=== PATIENT | female | born 1940 | race Caucasian/White ===

== ENCOUNTER 2017-03-12 04:25 | Emergency (ER) | payer MEDICAID, MEDICARE, OTHER ==
[~2017-03-12] VITALS: Ht 165.1 cm; Wt 99.0 kg
[2017-03-12] MEDS ORDERED: PLEASE ENTER ALLERGIES MC SCH (05:00)
[2017-03-12] MEDS ORDERED: LORazepam 1MG TABLET PO ONE (05:00)
[2017-03-12 05:15] LABS: BASOPHILS # (AUTO) 0.08 x10^3/uL (0-0.1); BASOPHILS % (AUTO) 1 % (0-1); EOSINOPHILS % (AUTO) 5 % (1-7); LYMPHOCYTES # (AUTO) 2.25 x10^3/uL (1-3.4); LYMPHOCYTES % (AUTO) 34 % (22-44); MD NO; MEAN CORPUSCULAR VOLUME 84.7 fL (80-100); MEAN PLATELET VOLUME 9.3 fL (7.4-10.4); MONOCYTES # (AUTO) 0.37 x10^3/uL (0.2-0.8); MONOCYTES % (AUTO) 6 % (2-9); NEUTROPHILS # (AUTO) 3.55 x10^3/uL (1.8-6.8); NEUTROPHILS % (AUTO) 54 % (42-75); PLATELET COUNT 278 x10^3/uL (130-400); RED BLOOD COUNT 4.29 x10^6/uL (3.82-5.3); RED CELL DISTRIBUTION WIDTH 14.1 % (9.6-15.2)
[2017-03-12 05:23] LABS: ALBUMIN 3.7 g/dL (3.4-5.0); ANION GAP 8 mmol/L (5-15); CALCIUM 8.9 mg/dL (8.5-10.1); CHLORIDE 105 mmol/L (98-107)
[2017-03-12 05:27] LABS: CREATINE KINASE, TOTAL 119 U/L (26-192); CREATININE 1.54 mg/dL (0.55-1.02)
[2017-03-12] MEDS ORDERED: LORazepam 1MG TABLET ONE (05:35)
[2017-03-12 05:55] VITALS: BP 108/57
[2017-03-12] MEDS ORDERED: LORazepam 0.5MG TABLET PO ONE (06:30)
== END 2017-03-12 06:28 | disposition home or self-care (01) ==
LOC: ED 05:26
DX: M79.661 Pain in right lower leg (principal); M79.662 Pain in left lower leg; G89.29 Other chronic pain; G25.81 Restless legs syndrome; J44.9 Chronic obstructive pulmonary disease, unspecified; E11.22 Type 2 diabetes mellitus with diabetic chronic kidney disease; N18.9 Chronic kidney disease, unspecified; E11.21 Type 2 diabetes mellitus with diabetic nephropathy; Z87.891 Personal history of nicotine dependence
CPT/HCPCS: 36415; 80048; 82040; 82550; 83735; 85025; 99284

== ENCOUNTER → 2017-04-04 | Outpatient (CLI) | payer MEDICARE | END | disposition home or self-care (01) | LOC: CFH 11:37 | PROVIDERS: ATTEND Internal Medicine Cardiovascular Disease | DX: Z01.818 Encounter for other preprocedural examination (principal); R06.02 Shortness of breath; R01.1 Cardiac murmur, unspecified | CPT/HCPCS: 78452; 93017; A9502 ==

== ENCOUNTER → 2017-04-05 | Outpatient (CLI) | payer MEDICARE ==
[~2017-04-05] MED LIST: REGADENOSON 0.4 MG/5 ML SYRINGE ONE
== END | disposition home or self-care (01) ==
LOC: CFH 07:59
PROVIDERS: ATTEND Internal Medicine Cardiovascular Disease
DX: Z01.810 Encounter for preprocedural cardiovascular examination (principal); R06.02 Shortness of breath; R01.1 Cardiac murmur, unspecified; I44.7 Left bundle-branch block, unspecified; Z87.891 Personal history of nicotine dependence; J44.9 Chronic obstructive pulmonary disease, unspecified; E11.9 Type 2 diabetes mellitus without complications; E78.5 Hyperlipidemia, unspecified; I51.7 Cardiomegaly
CPT/HCPCS: 93306; J2785

== ENCOUNTER → 2017-05-26 | Outpatient (CLI) | payer MEDICARE ==
[~2017-05-26] MED LIST changes: +ADVAIR INH; +ALBUTEROL INH; +AMOX1TAB64 PO; +ATOR40TA78 PO; +CALCIUM; +CEPH-368 PO; +CHOLESTEROL MED; +DULCOLAX PO; +DULO60CA7 PO; +FENO145T32 PO; +FLEXERIL PO; +GABAPENTIN PO; +HUMALOG SQ; +INSU100V8 SQ; +JANUVIA PO; +LEVOTHYROXINE PO; +LISI-170 PO; +LISI-420 PO; +NOVOLIN R SQ-INSULIN; +OMEPRAZOLE; +OXYC-306 PO; +OXYCODONE PO; +RANI300T PO; -REGADENOSON 0.4 MG/5 ML SYRINGE ONE; +REQUIP PO; +ROSU20TA PO; +TRAZODONE PO
== END | disposition home or self-care (01) ==
LOC: CFH 07:46
PROVIDERS: ATTEND Nurse Practitioner
DX: M43.22 Fusion of spine, cervical region (principal); J96.11 Chronic respiratory failure with hypoxia
CPT/HCPCS: 71250; 72040

== ENCOUNTER → 2017-07-18 | Outpatient (CLI) | payer MEDICARE ==
[~2017-07-18] MED LIST changes: +CEFD300C37 PO; +DULO30CA2 PO; +FLUT15.88 NAS; +FLUT1DIS3 INH; +INSU100I11 SQ; +METR500T PO; +MULT-516 PO; +OMEP20TA62 PO; +OMEP40CA6 PO; +ROPI2TAB4 PO; +ROPI3TAB2 PO; +UMEC1DIS INH
[2017-07-18 15:51] LABS: MICROSCOPIC AUTO
[2017-07-18 15:51] LABS: BASOPHILS # (AUTO) 0.05 x10^3/uL (0-0.1); BASOPHILS % (AUTO) 1 % (0-1); EOSINOPHILS # (AUTO) 0.09 x10^3/uL (0-0.4); EOSINOPHILS % (AUTO) 1 % (1-7); LYMPHOCYTES % (AUTO) 28 % (22-44); MD NO; MEAN CORPUSCULAR HEMOGLOBIN 28.3 pg (27.0-34.8); MEAN CORPUSCULAR HGB CONC 32.6 g/dL (32.4-35.8); MEAN CORPUSCULAR VOLUME 86.7 fL (80-100); MEAN PLATELET VOLUME 8.9 fL (7.4-10.4); MONOCYTES # (AUTO) 0.42 x10^3/uL (0.2-0.8); MONOCYTES % (AUTO) 6 % (2-9); NEUTROPHILS # (AUTO) 4.19 x10^3/uL (1.8-6.8); NEUTROPHILS % (AUTO) 64 % (42-75); PLATELET COUNT 300 x10^3/uL (130-400); RED BLOOD COUNT 4.14 x10^6/uL (3.82-5.3); RED CELL DISTRIBUTION WIDTH 14.6 % (9.6-15.2)
[2017-07-18 15:56] LABS: INTERNATIONAL NORMALIZED RATIO 1.04 (0.93-1.1); PROTHROMBIN TIME 10.7 Seconds (9.6-11.5)
[2017-07-18 15:58] LABS: ALANINE AMINOTRANSFERASE 22 U/L (12-78); ALBUMIN 3.8 g/dL (3.4-5.0); ANION GAP 6 mmol/L (5-15); CALCIUM 8.7 mg/dL (8.5-10.1); CHLORIDE 107 mmol/L (98-107); CREATININE 1.54 mg/dL (0.55-1.02)
[2017-07-18 16:00] LABS: CULTURE INDICATED? YES
[2017-07-18 16:00] LABS: ALKALINE PHOSPHATASE 54 U/L (45-117); BILIRUBIN,TOTAL 0.3 mg/dL (0.2-1.0); TOTAL PROTEIN 7.1 g/dL (6.4-8.2)
[2017-07-18 18:47] LABS: HEMOGLOBIN A1C 7.1 % (4.2-6.3)
== END | disposition home or self-care (01) ==
LOC: STAR 14:24
PROVIDERS: ATTEND Neurological Surgery
DX: Z01.818 Encounter for other preprocedural examination (principal); E11.9 Type 2 diabetes mellitus without complications; I44.7 Left bundle-branch block, unspecified; M19.072 Primary osteoarthritis, left ankle and foot
CPT/HCPCS: 36415; 71046; 80053; 81001; 83036; 85025; 85610; 85730; 87086; 93005

== ENCOUNTER 2017-08-12 19:41 | Emergency (ER) | payer MEDICARE ==
[~2017-08-12] VITALS: Ht 165.1 cm; Wt 95.0 kg
[~2017-08-12 19:41] MED LIST changes: +METH750T87 PO
[2017-08-12 19:45] VITALS: BP 160/87
[2017-08-12] MEDS ORDERED: SODIUM CHLORIDE 0.9% 1,000ML IVBOLUS ONE (20:00)
[2017-08-12 20:15] LABS: BASOPHILS # (AUTO) 0.05 x10^3/uL (0-0.1); BASOPHILS % (AUTO) 1 % (0-1); EOSINOPHILS # (AUTO) 0.01 x10^3/uL (0-0.4); EOSINOPHILS % (AUTO) 0 % (1-7); LYMPHOCYTES # (AUTO) 1.21 x10^3/uL (1-3.4); LYMPHOCYTES % (AUTO) 15 % (22-44); MD NO; MEAN CORPUSCULAR HEMOGLOBIN 28.5 pg (27.0-34.8); MEAN CORPUSCULAR HGB CONC 32.9 g/dL (32.4-35.8); MEAN CORPUSCULAR VOLUME 86.7 fL (80-100); MEAN PLATELET VOLUME 8.4 fL (7.4-10.4); MONOCYTES # (AUTO) 0.06 x10^3/uL (0.2-0.8); MONOCYTES % (AUTO) 1 % (2-9); NEUTROPHILS # (AUTO) 6.49 x10^3/uL (1.8-6.8); NEUTROPHILS % (AUTO) 83 % (42-75); PLATELET COUNT 512 x10^3/uL (130-400); RED BLOOD COUNT 3.83 x10^6/uL (3.82-5.3); RED CELL DISTRIBUTION WIDTH 13.9 % (9.6-15.2)
[2017-08-12 20:27] LABS: ALANINE AMINOTRANSFERASE 22 U/L (12-78); ALBUMIN 3.3 g/dL (3.4-5.0); ANION GAP 7 mmol/L (5-15); CALCIUM 8.7 mg/dL (8.5-10.1); CHLORIDE 104 mmol/L (98-107); CREATININE 1.61 mg/dL (0.55-1.02)
[2017-08-12 20:29] LABS: ALKALINE PHOSPHATASE 105 U/L (45-117); BILIRUBIN,TOTAL 0.2 mg/dL (0.2-1.0)
[2017-08-12 20:36] LABS: ACETONE, SERUM Negative (Negative)
[2017-08-12] MEDS ORDERED: INSULIN REGULAR 100 UNITS/ML, 3ML VIAL IVPush ONE (21:30)
[2017-08-12] MEDS ORDERED: INSULIN REGULAR 100 UNITS/ML, 3ML VIAL ONE (21:50)
== END 2017-08-12 22:33 | disposition home or self-care (01) ==
LOC: ED 22:04
DX: E11.65 Type 2 diabetes mellitus with hyperglycemia (principal); J44.9 Chronic obstructive pulmonary disease, unspecified
CPT/HCPCS: 36415; 80053; 82010; 82962; 85025; 93005; 96374; 99285; J7030

== ENCOUNTER → 2017-08-15 | Outpatient (CLI) | payer MEDICARE | END | disposition home or self-care (01) | LOC: RAD 11:15 | PROVIDERS: ATTEND Physician Assistant | DX: M48.061 Spinal stenosis, lumbar region without neurogenic claudication (principal); M48.54XA Collapsed vertebra, not elsewhere classified, thoracic region, initial encounter for fracture; M54.16 Radiculopathy, lumbar region | CPT/HCPCS: 72131; 72148 ==

== ENCOUNTER 2017-09-08 15:49 | Emergency (ER) | payer MEDICARE ==
[~2017-09-08 15:49] MED LIST changes: +ROSU20TA28 PO
[2017-09-08 16:05] VITALS: BP 180/69
== END 2017-09-08 18:59 | disposition home or self-care (01) ==
LOC: ED 18:00
DX: M79.605 Pain in left leg (principal); J44.9 Chronic obstructive pulmonary disease, unspecified; E11.9 Type 2 diabetes mellitus without complications; N28.9 Disorder of kidney and ureter, unspecified
CPT/HCPCS: 99284

== ENCOUNTER → 2017-11-07 | Outpatient (CLI) | payer MEDICARE, OTHER ==
[~2017-11-07] MED LIST changes: +GABA-827 PO; +LEVO150T5 PO; +OXYC1TAB8 PO; +ROPI1TAB PO; +ROPI3TAB PO; -ROPI3TAB2 PO; +ROPI3TAB4 PO; +SITA100T PO; +TRAZ150T62 PO
[2017-11-07 15:19] LABS: PROTHROMBIN TIME 10.3 Seconds (9.6-11.5)
[2017-11-07 15:21] LABS: ALBUMIN 3.8 g/dL (3.4-5.0); ANION GAP 6 mmol/L (5-15); CALCIUM 8.8 mg/dL (8.5-10.1); CHLORIDE 105 mmol/L (98-107)
[2017-11-07 15:22] LABS: BASOPHILS # (AUTO) 0.03 x10^3/uL (0-0.1); BASOPHILS % (AUTO) 0 % (0-1); EOSINOPHILS # (AUTO) 0.22 x10^3/uL (0-0.4); EOSINOPHILS % (AUTO) 3 % (1-7); LYMPHOCYTES # (AUTO) 1.59 x10^3/uL (1-3.4); LYMPHOCYTES % (AUTO) 18 % (22-44); MD NO; MEAN CORPUSCULAR HEMOGLOBIN 27.4 pg (27.0-34.8); MEAN CORPUSCULAR HGB CONC 32.8 g/dL (32.4-35.8); MEAN CORPUSCULAR VOLUME 83.5 fL (80-100); MEAN PLATELET VOLUME 9.4 fL (7.4-10.4); MONOCYTES # (AUTO) 0.49 x10^3/uL (0.2-0.8); MONOCYTES % (AUTO) 6 % (2-9); NEUTROPHILS # (AUTO) 6.39 x10^3/uL (1.8-6.8); NEUTROPHILS % (AUTO) 73 % (42-75); PLATELET COUNT 267 x10^3/uL (130-400); RED CELL DISTRIBUTION WIDTH 14.7 % (9.6-15.2)
[2017-11-07 15:23] LABS: MICROSCOPIC AUTO
[2017-11-07 15:25] LABS: ALANINE AMINOTRANSFERASE 25 U/L (12-78); ALKALINE PHOSPHATASE 86 U/L (45-117); BILIRUBIN,TOTAL 0.3 mg/dL (0.2-1.0); CREATININE 1.41 mg/dL (0.55-1.02); TOTAL PROTEIN 7.9 g/dL (6.4-8.2)
[2017-11-07 15:30] LABS: CULTURE INDICATED? YES
== END | disposition home or self-care (01) ==
LOC: STAR 13:45
PROVIDERS: ATTEND Neurological Surgery
DX: Z01.818 Encounter for other preprocedural examination (principal); I44.7 Left bundle-branch block, unspecified; M54.16 Radiculopathy, lumbar region; R06.02 Shortness of breath; E11.9 Type 2 diabetes mellitus without complications
CPT/HCPCS: 36415; 71046; 72110; 80053; 81001; 85025; 85610; 85730; 87086; 87147; 93005

== ENCOUNTER 2017-11-16 12:50 | Observation (INO) | payer MEDICARE, OTHER ==
[~2017-11-16] VITALS: Ht 165.1 cm; Wt 95.7 kg
[~2017-11-16 12:50] MED LIST changes: +BACITRACIN 50,000 UNIT ONE; +BUPIVACAINE 0.25% ONE; +BUPIVACAINE/PF-EPI 0.5% 1:200K ONE; +THROMBIN 5,000 UNIT VIAL TP ONE
[2017-11-16 13:06] VITALS: BP 125/75
[2017-11-16] MEDS: LACTATED RINGERS 1,000 ML IV SCH ×2 (13:24→21:41)
[2017-11-16] MEDS ORDERED: FENTANYL PF 250 MCG/5ML ONE (13:37)
[2017-11-16] MEDS ORDERED: ONDANSETRON 2MG/ML, 2ML ONE (13:42)
[2017-11-16] MEDS ORDERED: ROCURONIUM 10MG/ML,5ML ONE (13:42)
[2017-11-16] MEDS ORDERED: NEOSTIGMINE 1 MG/ML, 10ML ONE (13:42)
[2017-11-16] MEDS ORDERED: GLYCOPYRROLATE 0.2MG/1ML, 5ML ONE (13:42)
[2017-11-16] MEDS ORDERED: CEFAZOLIN 1,000 MG ONE (13:42)
[2017-11-16] MEDS ORDERED: PROPOFOL 10 MG/ML, 20ML ONE (13:42)
[2017-11-16] MEDS ORDERED: DEXAMETHASONE 4 MG/ML, 1ML ONE (13:42)
[2017-11-16] MEDS ORDERED: SUCCINYLCHOLINE 20 MG/ML, 10ML ONE (13:42)
[2017-11-16] MEDS ORDERED: EPHEDRINE 50 MG/ML, 1ML ONE ×2 (15:28)
[2017-11-16] MEDS ORDERED: ACETAMINOPHEN 325 MG TABLET PO PRN (15:30)
[2017-11-16] MEDS ORDERED: ONDANSETRON ODT 8 MG PO PRN (15:30)
[2017-11-16] MEDS ORDERED: ONDANSETRON 2MG/ML, 2ML IV PRN (15:30)
[2017-11-16] MEDS ORDERED: DIAZEPAM 5 MG/ML, 2ML IVPush PRN (15:30)
[2017-11-16] MEDS ORDERED: PROCHLORPERAZINE 5 MG/ML, 2ML IV PRN (15:30)
[2017-11-16] MEDS ORDERED: hydrALAzine 20 MG/ML, 1ML IV PRN (15:30)
[2017-11-16] MEDS ORDERED: LABETALOL 5MG/ML, 20ML IV PRN (15:30)
[2017-11-16] MEDS ORDERED: OXYcodone 5 MG/5 ML ORAL.SOL UDC PO PRN (15:30)
[2017-11-16] MEDS ORDERED: MORPHINE SULFATE 4 MG/ML, 1ML IVPush PRN ×2 (15:30→17:00)
[2017-11-16] MEDS ORDERED: HYDROmorphone 2 MG/ML, 1ML ONE (16:43)
[2017-11-16] MEDS ORDERED: FENTANYL PF 100 MCG/2ML ONE (16:43)
[2017-11-16] MEDS ORDERED: OXYcodone 5 MG/5 ML ORAL.SOL UDC ONE (16:43)
[2017-11-16] MEDS: FENTANYL PF 100 MCG/2ML IV PRN ×2 (16:47→17:02)
[2017-11-16] MEDS: HYDROmorphone 1 MG/ML, 1ML IV PRN ×4 (16:50→17:36)
[2017-11-16] MEDS ORDERED: DIPHENHYDRAMINE 50 MG/ML, 1ML IVPush PRN (17:00)
[2017-11-16] MEDS ORDERED: PROMETHAZINE 25 MG/ML, 1ML IM PRN (17:00)
[2017-11-16] MEDS ORDERED: INSULIN REGULAR 100 UNITS/ML, 3ML VIAL SQ-INSULIN PRN (17:00)
[2017-11-16] MEDS ORDERED: HYDROcodone/APAP 10/325 MG TABLET PO PRN (17:00)
[2017-11-16] MEDS ORDERED: HYDROcodone/APAP 5/325 TABLET PO PRN (17:00)
[2017-11-16] MEDS ORDERED: CYCLOBENZAPRINE 10 MG TABLET PO PRN (17:00)
[2017-11-16] MEDS ORDERED: SENNA/DOCUSATE TABLET PO PRN (17:00)
[2017-11-16] MEDS ORDERED: ROPINIROLE 1MG TABLET PO SCH ×2 (17:00→21:00)
[2017-11-16] MEDS: INSULIN GLARGINE 100 UNITS/ML, PEN SQ-INSULIN SCH ×2 (17:00→21:00)
[2017-11-16] MEDS: INSULIN LISPRO 100 UNITS/ML, PEN SQ-INSULIN SCH (17:00)
[2017-11-16] MEDS ORDERED: PHARMACY MAY ADJ FOR RENAL FX MC PRN (17:00)
[2017-11-16] MEDS ORDERED: BISACODYL 10 MG SUPP PR PRN (17:00)
[2017-11-16] MEDS ORDERED: OXYcodone/APAP 5/325MG TABLET PO PRN (17:00)
[2017-11-16] MEDS ORDERED: ONDANSETRON 2MG/ML, 2ML IVPush PRN (17:00)
[2017-11-16 20:15] VITALS: BP 115/72
[2017-11-16] MEDS ORDERED: TRAZODONE 150MG TABLET PO SCH (21:00)
[2017-11-16] MEDS ORDERED: ATORVASTATIN 40 MG TABLET PO SCH (21:00)
[2017-11-16] MEDS ORDERED: FENOFIBRATE 145 MG TABLET PO SCH (21:00)
[2017-11-16] MEDS: SODIUM CHLORIDE FLUSH 10ML SYR IVF SCH (21:00)
[2017-11-16] MEDS ORDERED: DULOXETINE 30 MG CAPSULE.DR PO SCH (21:00)
[2017-11-16] MEDS ORDERED: INSULIN GLARGINE 100 UNITS/ML, PEN SQ-INSULIN SCH (21:30)
[2017-11-16] MEDS: NS + 20MEQ KCL 1,000 ML IV SCH (21:42)
[2017-11-16] MEDS: GABAPENTIN 400 MG CAPSULE PO SCH (21:43)
[2017-11-16] MEDS: CEFAZOLIN PMX 1GM/50ML 50 ML IVPB SCH (23:10)
[2017-11-17 00:02] VITALS: BP 98/63
[2017-11-17] MEDS ORDERED: LEVOTHYROXINE 150 MCG TABLET PO SCH (06:00)
[2017-11-17] MEDS ORDERED: LEVOTHYROXINE 75 MCG TABLET ONE (06:26)
[2017-11-17] MEDS: CEFAZOLIN PMX 1GM/50ML 50 ML IVPB SCH (06:51)
[2017-11-17] MEDS: NS + 20MEQ KCL 1,000 ML IV SCH (07:36)
[2017-11-17 08:17] VITALS: BP 143/65
[2017-11-17] MEDS: GABAPENTIN 400 MG CAPSULE PO SCH (08:19)
[2017-11-17] MEDS: SODIUM CHLORIDE FLUSH 10ML SYR IVF SCH (08:23)
[2017-11-17] MEDS: INSULIN LISPRO 100 UNITS/ML, PEN SQ-INSULIN SCH (08:31)
[2017-11-17] MEDS ORDERED: FLUTICASONE NASAL SPRAY 16GM NAS SCH (09:00)
[2017-11-17] MEDS ORDERED: OMEPRAZOLE 20 MG CAPSULE.DR PO SCH (09:00)
[2017-11-17] MEDS ORDERED: LISINOPRIL 20 MG TABLET PO SCH (09:00)
[2017-11-17] MEDS ORDERED: SITAGLIPTIN 25MG TABLET PO SCH (09:00)
[2017-11-17] MEDS ORDERED: TEMPLATE NON-FORMULARY MED. (Umeclidinium Brm/Vilanterol Tr (Anoro Ellipta 62.5-25 Mcg Inh INH SCH (09:00)
[2017-11-17] MEDS ORDERED: ROPINIROLE 1MG TABLET PO SCH (09:00)
[2017-11-17] MEDS ORDERED: MULTIVITAMIN 1 TABLET PO SCH (09:00)
[2017-11-17] MEDS ORDERED: HYDR-3245 PO (09:21)
[2017-11-17] MEDS ORDERED: CYCL5TAB PO (09:21)
[2017-11-17] MEDS ORDERED: CEPH-368 PO (09:22)
== END 2017-11-17 10:29 | disposition home or self-care (01) ==
LOC: OUT 12:50 → 4NOR 19:18 → OUT 21:28 → DCLOUNGE 11-17 10:10
PROVIDERS: ADMIT Neurological Surgery; ATTEND Neurological Surgery
DX: M54.17 Radiculopathy, lumbosacral region (principal); M48.07 Spinal stenosis, lumbosacral region; Z79.899 Other long term (current) drug therapy
CPT/HCPCS: 63042; 63056; 63057; 72100; 82962; 96365; 96366; 96372; 96375; 97161; 97165; G0378; J0330; J0690; J1100; J1170; J1815; J2405; J2704; J2710; J3010; J3360; J3480; J3490; J7120

== ENCOUNTER → 2018-02-01 | Outpatient (CLI) | payer MEDICARE, OTHER ==
[~2018-02-01] MED LIST changes: -BACITRACIN 50,000 UNIT ONE; -BUPIVACAINE 0.25% ONE; -BUPIVACAINE/PF-EPI 0.5% 1:200K ONE; +CYCL5TAB PO; +HYDR-3245 PO; -THROMBIN 5,000 UNIT VIAL TP ONE
== END | disposition home or self-care (01) ==
LOC: CFH 14:59
PROVIDERS: ATTEND Physician Assistant
DX: M47.815 Spondylosis without myelopathy or radiculopathy, thoracolumbar region (principal)
CPT/HCPCS: 72114

== ENCOUNTER 2018-05-15 16:49 | Observation (INO) | payer MEDICARE ==
[~2018-05-15] VITALS: Ht 165.1 cm; Wt 96.3 kg
[~2018-05-15 16:49] MED LIST changes: -ROSU20TA PO; +ROSU20TA2 PO
--- NOTE | 2018-05-15 17:01 | NUR ---
Pt BIB EMS from [facility] for sudden onset L arm numbness and pressure to L chest starting approx 1600 today. Pt in SR with RBBB. Pt given 650MG ASA by clinic staff, 0.4 nitro and 75mcg fentanyl by EMS. Pt's CP has improved from 9 to 3 at this time. Pt received 200ml NS by EMS as well. Pt 88% RA by EMS 98% on 4L NC.
[2018-05-15] MEDS ORDERED: OMEP40CA6 PO (17:45)
[2018-05-15] MEDS ORDERED: ASPIRIN 81 MG TABLET CHEW PO ONE (18:00)
[2018-05-15 18:17] LABS: BASOPHILS # (AUTO) 0.05 x10^3/uL (0-0.1); BASOPHILS % (AUTO) 1 % (0-1); EOSINOPHILS # (AUTO) 0.17 x10^3/uL (0-0.4); EOSINOPHILS % (AUTO) 2 % (1-7); LYMPHOCYTES # (AUTO) 1.84 x10^3/uL (1-3.4); LYMPHOCYTES % (AUTO) 25 % (22-44); MD NO; MEAN CORPUSCULAR HEMOGLOBIN 27.9 pg (27.0-34.8); MEAN CORPUSCULAR HGB CONC 33.3 g/dL (32.4-35.8); MEAN CORPUSCULAR VOLUME 83.8 fL (80-100); MEAN PLATELET VOLUME 8.9 fL (7.4-10.4); MONOCYTES # (AUTO) 0.49 x10^3/uL (0.2-0.8); MONOCYTES % (AUTO) 7 % (2-9); NEUTROPHILS # (AUTO) 4.76 x10^3/uL (1.8-6.8); NEUTROPHILS % (AUTO) 65 % (42-75); PLATELET COUNT 265 x10^3/uL (130-400); RED BLOOD COUNT 4.33 x10^6/uL (3.82-5.3); RED CELL DISTRIBUTION WIDTH 14.8 % (9.6-15.2)
[2018-05-15 18:24] LABS: ALBUMIN 3.8 g/dL (3.4-5.0); ANION GAP 4 mmol/L (5-15); CALCIUM 8.7 mg/dL (8.5-10.1); CHLORIDE 110 mmol/L (98-107); CREATININE 1.45 mg/dL (0.55-1.02)
[2018-05-15 18:28] LABS: TROPONIN I < 0.015 ng/mL (0.000-0.045)
--- NOTE | 2018-05-15 19:45 | NUR ---
pt resting calmly, denies needs at this time, monitors in place, siderails up x2, call light within reach. awaiting room for admit
[2018-05-15] MEDS ORDERED: NITROGLYCERIN 0.4 MG BOTTLE (25 TABS) SL PRN (20:30)
[2018-05-15] MEDS ORDERED: BISACODYL 10 MG SUPP PR PRN (20:30)
[2018-05-15] MEDS ORDERED: ACETAMINOPHEN 325 MG TABLET PO PRN (20:30)
[2018-05-15] MEDS ORDERED: ROPINIROLE 1MG TABLET PO SCH (20:30)
[2018-05-15] MEDS ORDERED: ONDANSETRON ODT 4 MG PO PRN (20:30)
[2018-05-15] MEDS ORDERED: POLYETHYLENE GLYCOL 17 GM PACKET PO PRN (20:30)
[2018-05-15] MEDS ORDERED: morphine SULFATE 10 MG/ML, 1ML IVPush PRN (20:30)
[2018-05-15 20:37] LABS: HEMOGLOBIN A1C 8.1 % (4.2-6.3)
[2018-05-15] MEDS: INSULIN LISPRO 100 UNITS/ML, PEN SQ-INSULIN SCH (21:12)
[2018-05-15] MEDS: ATORVASTATIN 40 MG TABLET PO SCH (21:16)
[2018-05-15] MEDS: SODIUM CHLORIDE FLUSH 10ML SYR IVF SCH (21:27)
[2018-05-15] MEDS: DULOXETINE 30 MG CAPSULE.DR PO SCH (21:28)
[2018-05-15] MEDS: HEPARIN 5,000 UNITS/ML, 1ML SQ SCH (21:28)
[2018-05-15] MEDS: TRAZODONE 150MG TABLET PO SCH (21:29)
[2018-05-15] MEDS: GABAPENTIN 400 MG CAPSULE PO SCH (21:29)
[2018-05-15] MEDS: ROPINIROLE 1MG TABLET PO SCH (21:30)
[2018-05-15] MEDS: FENOFIBRATE 145 MG TABLET PO SCH (21:30)
[2018-05-15] MEDS: INSULIN GLARGINE 100 UNITS/ML, PEN SQ-INSULIN SCH (23:27)
[2018-05-16 00:50] LABS: TROPONIN I < 0.015 ng/mL (0.000-0.045)
[2018-05-16 01:47] VITALS: BP 112/60
[2018-05-16] MEDS: LEVOTHYROXINE 150 MCG TABLET PO SCH (06:27)
[2018-05-16] MEDS: ASPIRIN 81 MG TABLET EC PO SCH (06:27)
[2018-05-16] MEDS: HEPARIN 5,000 UNITS/ML, 1ML SQ SCH ×3 (06:27→22:52)
[2018-05-16 07:36] VITALS: BP 115/70
[2018-05-16 07:40] LABS: BASOPHILS # (AUTO) 0.02 x10^3/uL (0-0.1); BASOPHILS % (AUTO) 0 % (0-1); EOSINOPHILS # (AUTO) 0.15 x10^3/uL (0-0.4); EOSINOPHILS % (AUTO) 3 % (1-7); LYMPHOCYTES % (AUTO) 37 % (22-44); MD NO; MEAN CORPUSCULAR HEMOGLOBIN 27.2 pg (27.0-34.8); MEAN CORPUSCULAR HGB CONC 32.1 g/dL (32.4-35.8); MEAN CORPUSCULAR VOLUME 84.7 fL (80-100); MEAN PLATELET VOLUME 9.1 fL (7.4-10.4); MONOCYTES # (AUTO) 0.37 x10^3/uL (0.2-0.8); MONOCYTES % (AUTO) 7 % (2-9); NEUTROPHILS # (AUTO) 2.69 x10^3/uL (1.8-6.8); NEUTROPHILS % (AUTO) 52 % (42-75); PLATELET COUNT 254 x10^3/uL (130-400); RED BLOOD COUNT 4.64 x10^6/uL (3.82-5.3); RED CELL DISTRIBUTION WIDTH 14.8 % (9.6-15.2)
[2018-05-16 07:49] LABS: ALANINE AMINOTRANSFERASE 28 U/L (12-78); ALBUMIN 3.7 g/dL (3.4-5.0); ANION GAP 6 mmol/L (5-15); CALCIUM 9.2 mg/dL (8.5-10.1); CHLORIDE 109 mmol/L (98-107); CREATININE 1.44 mg/dL (0.55-1.02)
[2018-05-16 07:53] LABS: ALKALINE PHOSPHATASE 68 U/L (45-117); BILIRUBIN,TOTAL 0.3 mg/dL (0.2-1.0); CHOL/HDL RATIO 3.7; LDL/HDL RATIO 1.4 (0.5-3.0); TOTAL PROTEIN 7.2 g/dL (6.4-8.2); TROPONIN I < 0.015 ng/mL (0.000-0.045)
[2018-05-16] MEDS: TEMPLATE NON-FORMULARY MED. (Umeclidinium Brm/Vilanterol Tr (Anoro Ellipta 62.5-25 Mcg Inh INH SCH (08:27)
[2018-05-16] MEDS: INSULIN LISPRO 100 UNITS/ML, PEN SQ-INSULIN SCH ×3 (08:27→17:28)
[2018-05-16] MEDS: MULTIVITAMIN 1 TABLET PO SCH (08:55)
[2018-05-16] MEDS: OMEPRAZOLE 20 MG CAPSULE.DR PO SCH (08:55)
[2018-05-16] MEDS: GABAPENTIN 400 MG CAPSULE PO SCH ×3 (08:55→21:49)
[2018-05-16] MEDS: ROPINIROLE 1MG TABLET PO SCH ×2 (08:55→21:50)
[2018-05-16] MEDS: LINAGLIPTIN 5 MG TAB PO SCH (08:55)
[2018-05-16] MEDS: SODIUM CHLORIDE FLUSH 10ML SYR IVF SCH ×2 (08:56→21:48)
[2018-05-16] MEDS: FLUTICASONE NASAL SPRAY 16GM NAS SCH (08:56)
[2018-05-16] MEDS: LISINOPRIL 20 MG TABLET PO SCH (08:56)
[2018-05-16] MEDS ORDERED: ARTIFICIAL TEARS 15 DROP/ML BOTTLE EACHEYE PRN (09:00)
[2018-05-16] MEDS: SENNA/DOCUSATE TABLET PO SCH (09:02)
[2018-05-16] MEDS ORDERED: REGADENOSON 0.4 MG/5 ML SYRINGE ONE (09:53)
[2018-05-16] MEDS ORDERED: ROPINIROLE 1MG TABLET PO SCH (15:00)
[2018-05-16 15:24] VITALS: BP 112/52
[2018-05-16 19:41] VITALS: BP 148/80
[2018-05-16 20:14] VITALS: BP 100/58
[2018-05-16] MEDS: ATORVASTATIN 40 MG TABLET PO SCH (21:49)
[2018-05-16] MEDS: FENOFIBRATE 145 MG TABLET PO SCH (21:49)
[2018-05-16] MEDS: DULOXETINE 30 MG CAPSULE.DR PO SCH (21:49)
[2018-05-16] MEDS: TRAZODONE 150MG TABLET PO SCH (21:50)
[2018-05-16] MEDS: INSULIN GLARGINE 100 UNITS/ML, PEN SQ-INSULIN SCH (21:52)
[2018-05-16 21:53] VITALS: BP 111/62
[2018-05-16] MEDS ORDERED: INSULIN LISPRO 100 UNITS/ML, PEN SQ-INSULIN ONE (22:00)
[2018-05-17 01:44] VITALS: BP 101/64
[2018-05-17 04:49] LABS: BASOPHILS # (AUTO) 0.08 x10^3/uL (0-0.1); BASOPHILS % (AUTO) 2 % (0-1); EOSINOPHILS # (AUTO) 0.19 x10^3/uL (0-0.4); EOSINOPHILS % (AUTO) 4 % (1-7); LYMPHOCYTES # (AUTO) 2.07 x10^3/uL (1-3.4); LYMPHOCYTES % (AUTO) 38 % (22-44); MD NO; MEAN CORPUSCULAR HEMOGLOBIN 27.9 pg (27.0-34.8); MEAN CORPUSCULAR HGB CONC 32.8 g/dL (32.4-35.8); MEAN CORPUSCULAR VOLUME 84.9 fL (80-100); MONOCYTES # (AUTO) 0.41 x10^3/uL (0.2-0.8); MONOCYTES % (AUTO) 8 % (2-9); NEUTROPHILS # (AUTO) 2.64 x10^3/uL (1.8-6.8); NEUTROPHILS % (AUTO) 49 % (42-75); PLATELET COUNT 219 x10^3/uL (130-400); RED BLOOD COUNT 4.28 x10^6/uL (3.82-5.3); RED CELL DISTRIBUTION WIDTH 14.9 % (9.6-15.2)
[2018-05-17 05:02] LABS: ALANINE AMINOTRANSFERASE 26 U/L (12-78); ALBUMIN 3.4 g/dL (3.4-5.0); ANION GAP 7 mmol/L (5-15); CALCIUM 8.7 mg/dL (8.5-10.1); CHLORIDE 107 mmol/L (98-107); CREATININE 1.52 mg/dL (0.55-1.02)
[2018-05-17 05:04] LABS: ALKALINE PHOSPHATASE 61 U/L (45-117); BILIRUBIN,TOTAL 0.2 mg/dL (0.2-1.0); TOTAL PROTEIN 6.4 g/dL (6.4-8.2)
[2018-05-17] MEDS: LEVOTHYROXINE 150 MCG TABLET PO SCH (06:14)
[2018-05-17] MEDS: ASPIRIN 81 MG TABLET EC PO SCH (06:14)
[2018-05-17 08:05] VITALS: BP 99/62
[2018-05-17] MEDS: MULTIVITAMIN 1 TABLET PO SCH (08:11)
[2018-05-17] MEDS: ROPINIROLE 1MG TABLET PO SCH (08:11)
[2018-05-17] MEDS: OMEPRAZOLE 20 MG CAPSULE.DR PO SCH (08:11)
[2018-05-17] MEDS: SENNA/DOCUSATE TABLET PO SCH (08:12)
[2018-05-17] MEDS: HEPARIN 5,000 UNITS/ML, 1ML SQ SCH (08:12)
[2018-05-17] MEDS: LINAGLIPTIN 5 MG TAB PO SCH (08:12)
[2018-05-17] MEDS: LISINOPRIL 20 MG TABLET PO SCH (08:12)
[2018-05-17] MEDS: GABAPENTIN 400 MG CAPSULE PO SCH (08:12)
[2018-05-17] MEDS: FLUTICASONE NASAL SPRAY 16GM NAS SCH (08:13)
[2018-05-17] MEDS: TEMPLATE NON-FORMULARY MED. (Umeclidinium Brm/Vilanterol Tr (Anoro Ellipta 62.5-25 Mcg Inh INH SCH (08:13)
[2018-05-17] MEDS: SODIUM CHLORIDE FLUSH 10ML SYR IVF SCH (08:13)
[2018-05-17] MEDS: INSULIN LISPRO 100 UNITS/ML, PEN SQ-INSULIN SCH ×2 (08:39→12:03)
[2018-05-17] MEDS ORDERED: ASPI-515 PO (13:32)
== END 2018-05-17 14:00 | disposition home or self-care (01) ==
LOC: ED 19:32 → 5SO 20:40 → INTOOBSV 20:40 → DCLOUNGE 05-17 13:43
PROVIDERS: ADMIT Family Medicine; ATTEND Family Medicine
DX: R07.89 Other chest pain (principal); K21.9 Gastro-esophageal reflux disease without esophagitis; E03.9 Hypothyroidism, unspecified; E11.21 Type 2 diabetes mellitus with diabetic nephropathy; E11.22 Type 2 diabetes mellitus with diabetic chronic kidney disease; E11.42 Type 2 diabetes mellitus with diabetic polyneuropathy; E11.51 Type 2 diabetes mellitus with diabetic peripheral angiopathy without gangrene; E66.9 Obesity, unspecified; E78.5 Hyperlipidemia, unspecified; E11.65 Type 2 diabetes mellitus with hyperglycemia; G25.81 Restless legs syndrome; G47.33 Obstructive sleep apnea (adult) (pediatric); I12.9 Hypertensive chronic kidney disease with stage 1 through stage 4 chronic kidney disease, or unspecified chronic kidney disease; I44.7 Left bundle-branch block, unspecified; J44.9 Chronic obstructive pulmonary disease, unspecified; M19.90 Unspecified osteoarthritis, unspecified site; N18.3 Chronic kidney disease, stage 3 (moderate); Z66 Do not resuscitate; Z79.4 Long term (current) use of insulin; Z82.49 Family history of ischemic heart disease and other diseases of the circulatory system; Z82.62 Family history of osteoporosis; Z85.828 Personal history of other malignant neoplasm of skin; Z87.891 Personal history of nicotine dependence; Z90.710 Acquired absence of both cervix and uterus; Z99.81 Dependence on supplemental oxygen; Z98.41 Cataract extraction status, right eye; Z98.42 Cataract extraction status, left eye; Z90.49 Acquired absence of other specified parts of digestive tract; G45.9 Transient cerebral ischemic attack, unspecified; G89.29 Other chronic pain
CPT/HCPCS: 36415; 70450; 70551; 71045; 73030; 78452; 80048; 80053; 80061; 82040; 82962; 83036; 83735; 83880; 84100; 84484; 85025; 93005; 93017; 93306; 93880; 96372; 97161; 97165; 99285; A9502; C9898; G0378; J1644; J1815; J2785

== ENCOUNTER 2018-08-14 23:36 | Emergency (ER) | payer MEDICARE ==
[~2018-08-14] VITALS: Ht 165.1 cm; Wt 91.0 kg
[~2018-08-14 23:36] MED LIST changes: +AMPI500C2 PO; +ASPI-515 PO; +BACI1CAP6 PO; +INSU100C5 SQ-INSULIN; +ROPI0.5T PO; +ROPI1TAB2 PO
--- NOTE | 2018-08-14 23:42 | NUR ---
MARRY RN ASSISTING PRIMARY RN. BIB AMBULANCE FROM HOME FOR LLE PAIN "WOKE UP THIS MORNING WITH SHOOTING PAINS FROM THE BOTTOM OF MY FOOT UP MY LEG TO MY HIP, HAPPENING ON AND OFF." DENIES INJURY OR TRAUMA. CMS INTACT, PEDAL PULSE NORMAL AND STRONG. PER PT "SOAKING MY FOOT, USING FREE ZONE AND MY OXYCODONE FOR PAIN, NOT HELPING." NO OPEN WOUNDS NOTED ON FOOT. RATES PAIN 10/10 IN LEFT FOOT. CONT PULSE OX, BP MONITORS APPLIED. DR. PARK AT BEDSIDE FOR EVALUATION, AWAITING ORDERS. CALL LIGHT IN REACH. FALL PRECAUTIONS IN PLACE. SIDE RAILS UPX2. A&OX4.
--- NOTE | 2018-08-14 23:59 | NUR ---
MARRY ARCOS. LAB AT BEDSIDE.
[2018-08-15] MEDS ORDERED: ALBU2.5V NEB (00:06)
[2018-08-15] MEDS ORDERED: FLUT1BLS3 IH (00:06)
[2018-08-15] MEDS ORDERED: ALBU8.5H8 INH (00:06)
[2018-08-15] MEDS ORDERED: POLY17PO5 PO (00:09)
[2018-08-15] MEDS ORDERED: OMEG1CAP23 PO (00:09)
--- NOTE | 2018-08-15 00:13 | NUR ---
REPORT AND CARE TO CARIDAD ARCOS AT THIS TIME. MEDICATION REQUESTED FROM PHARMACY.
[2018-08-15] MEDS ORDERED: LIDODERM 5% PATCH TD ONE ×2 (00:18)
[2018-08-15 00:27] LABS: BASOPHILS # (AUTO) 0.05 x10^3/uL (0-0.1); BASOPHILS % (AUTO) 1 % (0-1); EOSINOPHILS # (AUTO) 0.25 x10^3/uL (0-0.4); EOSINOPHILS % (AUTO) 4 % (1-7); LYMPHOCYTES # (AUTO) 2.09 x10^3/uL (1-3.4); LYMPHOCYTES % (AUTO) 33 % (22-44); MD NO; MEAN CORPUSCULAR HEMOGLOBIN 28.2 pg (27.0-34.8); MEAN CORPUSCULAR HGB CONC 32.3 g/dL (32.4-35.8); MEAN CORPUSCULAR VOLUME 87.4 fL (80-100); MEAN PLATELET VOLUME 9.7 fL (7.4-10.4); MONOCYTES # (AUTO) 0.41 x10^3/uL (0.2-0.8); MONOCYTES % (AUTO) 6 % (2-9); NEUTROPHILS # (AUTO) 3.63 x10^3/uL (1.8-6.8); NEUTROPHILS % (AUTO) 56 % (42-75); PLATELET COUNT 237 x10^3/uL (130-400); RED BLOOD COUNT 4.34 x10^6/uL (3.82-5.3); RED CELL DISTRIBUTION WIDTH 13.9 % (9.6-15.2)
--- NOTE | 2018-08-15 00:28 | NUR ---
REPORT TO PHOENIX ARCOS. PT IN US AT THIS TIME
[2018-08-15 00:34] LABS: ALBUMIN 3.4 g/dL (3.4-5.0); ANION GAP 8 mmol/L (5-15); CALCIUM 8.8 mg/dL (8.5-10.1); CHLORIDE 105 mmol/L (98-107); CREATININE 1.25 mg/dL (0.55-1.02)
--- NOTE | 2018-08-15 00:51 | NUR ---
REPORT FROM MIRIAM ARCOS. PT MEDICATED AND HAS NO OTHER NEEDS AT THIS TIME. CALL LIGHT IN REACH
[2018-08-15 01:12] VITALS: BP 146/59
--- NOTE | 2018-08-15 01:13 | NUR ---
Patient given discharge instructions and they have confirmed that they understand the instructions. Patient ambulatory with steady gait.
== END 2018-08-15 01:15 | disposition home or self-care (01) ==
LOC: ED 08-15 00:25
DX: M25.572 Pain in left ankle and joints of left foot (principal); M10.072 Idiopathic gout, left ankle and foot; M13.172 Monoarthritis, not elsewhere classified, left ankle and foot; E11.9 Type 2 diabetes mellitus without complications; I50.9 Heart failure, unspecified; I11.0 Hypertensive heart disease with heart failure; J44.9 Chronic obstructive pulmonary disease, unspecified; Z90.49 Acquired absence of other specified parts of digestive tract
CPT/HCPCS: 36415; 80048; 82040; 84550; 85025; 99284

== ENCOUNTER 2018-09-06 13:18 | Outpatient (CLI) | payer MEDICARE | END 2018-09-06 23:59 | disposition home or self-care (01) | LOC: CFH 13:18 | PROVIDERS: ATTEND Registered Nurse | DX: I08.0 Rheumatic disorders of both mitral and aortic valves (principal); I11.9 Hypertensive heart disease without heart failure; I50.33 Acute on chronic diastolic (congestive) heart failure; E78.5 Hyperlipidemia, unspecified; E11.9 Type 2 diabetes mellitus without complications | CPT/HCPCS: 93306 ==

== ENCOUNTER 2018-12-01 03:46 | Observation (INO) | payer MEDICARE ==
[~2018-12-01] VITALS: Ht 165.1 cm; Wt 100.4 kg
[~2018-12-01 03:46] MED LIST changes: +ALBU2.5V NEB; +ALBU8.5H8 INH; +FLUT15.845 NAS; -FLUT15.88 NAS; +FLUT1BLS3 IH; +OMEG1CAP23 PO; +OMEP40CA42 PO; -OMEP40CA6 PO; +POLY17PO5 PO; -ROSU20TA28 PO; +ROSU20TA29 PO
[2018-12-01] MEDS ORDERED: methylPREDNISolone SOD SUCC 125 MG/2 ML IVPush STA (03:55)
[2018-12-01] MEDS ORDERED: ALBUTEROL/IPRATROPIUM 2.5MG/0.5MG, 3 ML NPPB ONE (04:00)
[2018-12-01] MEDS ORDERED: ASPIRIN 81 MG TABLET CHEW PO ONE (04:00)
[2018-12-01] MEDS ORDERED: SODIUM CHLORIDE FLUSH 10ML SYR IVF ONE (04:00)
[2018-12-01] MEDS ORDERED: ALBUTEROL/IPRATROPIUM 2.5MG/0.5MG, 3 ML ONE (04:03)
--- NOTE | 2018-12-01 04:26 | NUR ---
SOB THAT STARTED ABOUT AN HOUR AGO. PT W/ HX COPD. 3L NC AT HOME. PT STATES SHE TRIED A BREATHING TREATMENT AND IT DIDNT HELP WITH SOB. PT SPEAKING IN COMPLETE SENTENCES. O2 SAT AT 93% ON 3L NC. pt attached to all monitors. call light within reach, bed rails up x2
[2018-12-01] MEDS ORDERED: methylPREDNISolone SOD SUCC 125 MG/2 ML ONE (04:32)
[2018-12-01] MEDS ORDERED: ASPIRIN 81 MG TABLET CHEW ONE (04:32)
[2018-12-01 04:38] LABS: BASOPHILS # (AUTO) 0.07 x10^3/uL (0-0.1); BASOPHILS % (AUTO) 1 % (0-1); EOSINOPHILS # (AUTO) 0.21 x10^3/uL (0-0.4); EOSINOPHILS % (AUTO) 2 % (1-7); LYMPHOCYTES # (AUTO) 3.92 x10^3/uL (1-3.4); LYMPHOCYTES % (AUTO) 41 % (22-44); MD NO; MEAN CORPUSCULAR HEMOGLOBIN 28.4 pg (27.0-34.8); MEAN CORPUSCULAR HGB CONC 32.2 g/dL (32.4-35.8); MEAN CORPUSCULAR VOLUME 88.2 fL (80-100); MEAN PLATELET VOLUME 8.6 fL (7.4-10.4); MONOCYTES # (AUTO) 0.59 x10^3/uL (0.2-0.8); MONOCYTES % (AUTO) 6 % (2-9); NEUTROPHILS % (AUTO) 50 % (42-75); PLATELET COUNT 234 x10^3/uL (130-400); RED BLOOD COUNT 4.68 x10^6/uL (3.82-5.3); RED CELL DISTRIBUTION WIDTH 14.8 % (9.6-15.2)
[2018-12-01 04:46] LABS: ALANINE AMINOTRANSFERASE 26 U/L (12-78); ALBUMIN 3.5 g/dL (3.4-5.0); ANION GAP 3 mmol/L (5-15); CALCIUM 9.3 mg/dL (8.5-10.1); CHLORIDE 107 mmol/L (98-107); CREATININE 1.18 mg/dL (0.55-1.02)
[2018-12-01 04:51] LABS: ALKALINE PHOSPHATASE 89 U/L (45-117); BILIRUBIN,TOTAL 0.3 mg/dL (0.2-1.0); TOTAL PROTEIN 7.2 g/dL (6.4-8.2); TROPONIN I < 0.015 ng/mL (0.000-0.045)
[2018-12-01] MEDS ORDERED: ROSU10TA2 PO (04:55)
[2018-12-01] MEDS ORDERED: INSU100I28 SQ (04:55)
[2018-12-01] MEDS ORDERED: EZET10TA70 PO (04:55)
[2018-12-01] MEDS ORDERED: FLUT1BLS3 IH (04:55)
[2018-12-01] MEDS ORDERED: MORPHINE SULFATE 4 MG/ML, 1ML ONE (04:56)
[2018-12-01] MEDS ORDERED: FUROSEMIDE 40 MG/4 ML ONE (04:56)
[2018-12-01] MEDS ORDERED: FUROSEMIDE 40 MG/4 ML IV ONE (05:00)
[2018-12-01] MEDS ORDERED: morphine SULFATE 10 MG/ML, 1ML IVPush ONE (05:00)
--- NOTE | 2018-12-01 05:04 | NUR ---
pt refused lasix. states she had lasix when she was in this hospital in september 2018. pt states lasix gave her kidney failure and she descibes her reaction to lasix as an 'allergy.' pt refuses medication.
--- NOTE | 2018-12-01 05:05 | NUR ---
pt medicated for foot pain per emar.
--- NOTE | 2018-12-01 06:11 | NUR ---
report to oralia guadarrama
[2018-12-01 06:34] VITALS: BP 150/77
[2018-12-01 07:31] VITALS: BP 162/74
[2018-12-01] MEDS ORDERED: ALBUTEROL/IPRATROPIUM 2.5MG/0.5MG, 3 ML IPPB PRN (09:00)
[2018-12-01 12:41] VITALS: BP 159/75
[2018-12-01] MEDS ORDERED: ALBUTEROL/IPRATROPIUM 2.5MG/0.5MG, 3 ML NPPB PRN (13:00)
[2018-12-01] MEDS: GABAPENTIN 400 MG CAPSULE PO SCH ×2 (15:28→21:06)
[2018-12-01] MEDS: ALBUTEROL SULFATE 2.5 MG/3 ML NPPB SCH ×2 (15:30→19:30)
[2018-12-01] MEDS ORDERED: OXYcodone/APAP 7.5/325MG TABLET PO PRN ×2 (15:30→16:00)
[2018-12-01] MEDS ORDERED: POLYETHYLENE GLYCOL 17 GM PACKET PO PRN (15:30)
[2018-12-01] MEDS ORDERED: TEMPLATE NON-FORMULARY MED. (Insulin Aspart** (Novolog**) 0 UNITS) SQ-INSULIN SCH (16:00)
[2018-12-01] MEDS: OXYcodone/APAP 7.5/325MG TABLET PO PRN ×2 (16:21→23:20)
[2018-12-01] MEDS: INSULIN LISPRO 100 UNITS/ML, PEN SQ-INSULIN SCH ×2 (16:45→21:07)
[2018-12-01] MEDS ORDERED: INSULIN LISPRO 100 UNIT/ML, 3ML VIAL SQ-INSULIN ONE (18:00)
[2018-12-01 19:09] VITALS: BP 143/72
[2018-12-01] MEDS ORDERED: TRAZODONE 150MG TABLET PO SCH (21:00)
[2018-12-01] MEDS ORDERED: ALBUTEROL/IPRATROPIUM 2.5MG/0.5MG, 3 ML NPPB SCH (21:00)
[2018-12-01] MEDS ORDERED: BUDESONIDE 0.5 MG/2 ML INHA NPPB SCH (21:00)
[2018-12-01] MEDS ORDERED: ATORVASTATIN 40 MG TABLET PO SCH (21:00)
[2018-12-01] MEDS ORDERED: INSULIN GLARGINE 100 UNITS/ML, PEN SQ-INSULIN SCH ×2 (21:00)
[2018-12-02 01:24] VITALS: BP 103/46
[2018-12-02] MEDS ORDERED: LEVOTHYROXINE 150 MCG TABLET PO SCH (06:00)
[2018-12-02] MEDS ORDERED: TEMPLATE NON-FORMULARY MED. (Fluticasone/Umeclidin/Vilanter (Trelegy Ellipta 100-62.5-25 IH SCH (09:00)
[2018-12-02] MEDS ORDERED: ROPINIROLE 1MG TABLET PO SCH (09:00)
[2018-12-02] MEDS ORDERED: OMEPRAZOLE 20 MG CAPSULE.DR PO SCH (09:00)
[2018-12-02] MEDS ORDERED: MULTIVITAMIN 1 TABLET PO SCH (09:00)
[2018-12-02] MEDS ORDERED: OMEGA-3/FISH OIL CAPSULE PO SCH (09:00)
[2018-12-02] MEDS ORDERED: ASPIRIN 81 MG TABLET EC PO SCH (09:00)
[2018-12-02] MEDS ORDERED: EZETIMIBE 10 MG TABLET PO SCH (09:00)
== END 2018-12-02 03:00 | disposition left against medical advice (07) ==
LOC: ED 04:57 → INTOOBSV 05:29 → EDIP 05:29 → 4EST 06:28
PROVIDERS: ADMIT Family Medicine; ATTEND Family Medicine
DX: J96.21 Acute and chronic respiratory failure with hypoxia (principal); M25.572 Pain in left ankle and joints of left foot; I13.0 Hypertensive heart and chronic kidney disease with heart failure and stage 1 through stage 4 chronic kidney disease, or unspecified chronic kidney disease; J44.1 Chronic obstructive pulmonary disease with (acute) exacerbation; E03.9 Hypothyroidism, unspecified; E11.51 Type 2 diabetes mellitus with diabetic peripheral angiopathy without gangrene; E11.65 Type 2 diabetes mellitus with hyperglycemia; E66.9 Obesity, unspecified; E78.5 Hyperlipidemia, unspecified; G25.81 Restless legs syndrome; G47.33 Obstructive sleep apnea (adult) (pediatric); E11.42 Type 2 diabetes mellitus with diabetic polyneuropathy; G89.4 Chronic pain syndrome; K21.9 Gastro-esophageal reflux disease without esophagitis; N18.3 Chronic kidney disease, stage 3 (moderate); E11.22 Type 2 diabetes mellitus with diabetic chronic kidney disease; I44.7 Left bundle-branch block, unspecified; I50.9 Heart failure, unspecified; M10.9 Gout, unspecified; Z79.4 Long term (current) use of insulin; Z68.36 Body mass index [BMI] 36.0-36.9, adult; Z99.81 Dependence on supplemental oxygen
CPT/HCPCS: 36415; 71045; 71250; 73610; 73630; 80053; 82947; 82962; 83880; 84443; 84484; 84550; 85025; 93005; 93971; 94640; 94660; 96372; 96374; 96375; 99285; G0378; J1815; J2270; J2930; J7620; J7626

== ENCOUNTER 2019-01-07 14:06 | Inpatient (IN) | payer MEDICARE ==
[~2019-01-07] VITALS: Ht 165.1 cm; Wt 97.0 kg
[~2019-01-07 14:06] MED LIST changes: +EZET10TA70 PO; +INSU100I28 SQ; +ROSU10TA2 PO
[2019-01-07] MEDS ORDERED: SODIUM CHLORIDE 0.9% 1,000 ML IV ONE (14:27)
[2019-01-07] MEDS ORDERED: ONDANSETRON 2MG/ML, 2ML IVPush ONE (14:30)
[2019-01-07] MEDS ORDERED: SODIUM CHLORIDE FLUSH 10ML SYR IVF ONE (14:30)
[2019-01-07] MEDS ORDERED: SODIUM CHLORIDE 0.9% 1,000ML IVBOLUS ONE (14:30)
--- NOTE | 2019-01-07 14:30 | NUR ---
PT ARRIVES TO ED WITH C/O OF NOT FEELING WELL AND N/V AT HOME X 3 DAYS. PT REPORTS SHE HAS BEEN FEELING ILL WITH NO RELIEF AND GENERAL MALASIE LIKE SHE HAS A BAD COLD. PT REPORTS DECREASED APPETITE AND NEW ONSET OF SOB. PT DENEIS ANY CHEST PAIN AND NO COUGH PRESENT. LUNG SOUNDS HAVE CRACKLES THROUGHOUT. PT CONNECTED TO MONITORS AND CALL [facility] IN [facility]. AWAITING FURHTER ORDERS.
[2019-01-07 14:46] LABS: BASOPHILS # (AUTO) 0.08 x10^3/uL (0-0.1); BASOPHILS % (AUTO) 1 % (0-1); EOSINOPHILS # (AUTO) 0.07 x10^3/uL (0-0.4); EOSINOPHILS % (AUTO) 1 % (1-7); LYMPHOCYTES # (AUTO) 1.76 x10^3/uL (1-3.4); LYMPHOCYTES % (AUTO) 16 % (22-44); MD NO; MEAN CORPUSCULAR HEMOGLOBIN 28.5 pg (27.0-34.8); MEAN CORPUSCULAR HGB CONC 32.6 g/dL (32.4-35.8); MEAN CORPUSCULAR VOLUME 87.5 fL (80-100); MEAN PLATELET VOLUME 8.9 fL (7.4-10.4); MONOCYTES # (AUTO) 0.66 x10^3/uL (0.2-0.8); MONOCYTES % (AUTO) 6 % (2-9); NEUTROPHILS # (AUTO) 8.34 x10^3/uL (1.8-6.8); NEUTROPHILS % (AUTO) 77 % (42-75); PLATELET COUNT 278 x10^3/uL (130-400); RED BLOOD COUNT 4.84 x10^6/uL (3.82-5.3); RED CELL DISTRIBUTION WIDTH 14.6 % (9.6-15.2)
[2019-01-07 14:59] LABS: ALANINE AMINOTRANSFERASE 27 U/L (12-78); ALBUMIN 3.1 g/dL (3.4-5.0); ANION GAP 7 mmol/L (5-15); CALCIUM 8.6 mg/dL (8.5-10.1); CHLORIDE 105 mmol/L (98-107); CREATININE 1.16 mg/dL (0.55-1.02)
[2019-01-07 15:01] LABS: ALKALINE PHOSPHATASE 67 U/L (45-117); BILIRUBIN,TOTAL 0.4 mg/dL (0.2-1.0); TOTAL PROTEIN 6.6 g/dL (6.4-8.2)
[2019-01-07] MEDS ORDERED: ROPI1TAB2 PO (15:17)
[2019-01-07] MEDS ORDERED: GABA800T5 PO (15:17)
--- NOTE | 2019-01-07 15:19 | NUR ---
PT WAS MEDICATED PER EMAR. RESTING IN BED AT THIS TIME. VSS. PT UNABLE TO PROVIDE UA AT THIS TIME.
[2019-01-07 15:45] LABS: RAPID INFLUENZA A Negative (Negative); RAPID INFLUENZA B Negative (Negative)
--- NOTE | 2019-01-07 16:09 | NUR ---
PT AMBULATED TO RESTROOM WITH WALKER. PT TOLERATED WELL. ON RETURN PT WAS SOB HOWEVER.
[2019-01-07 16:24] LABS: MICROSCOPIC AUTO
[2019-01-07 16:28] LABS: CULTURE INDICATED? YES
[2019-01-07] MEDS ORDERED: METRONIDAZOLE PMX 500MG/100ML 100 ML ONE (18:19)
[2019-01-07] MEDS ORDERED: CEFOTETAN PMX 1GM/50ML 50 ML IV ONE (18:30)
[2019-01-07] MEDS ORDERED: SODIUM CHLORIDE FLUSH 10ML SYR IVF PRN (18:30)
--- NOTE | 2019-01-07 18:30 | NUR ---
CEFOTETAN NOT AVAILABLE AT THIS THIS TIME, SAID OKAY TO START WITH FLAGYL AND THEN GIVE CEFOTETAN.
[2019-01-07] MEDS ORDERED: METRONIDAZOLE PMX 500MG/100ML 100 ML IV ONE (19:00)
--- NOTE | 2019-01-07 19:26 | NUR ---
REPORT CALLED TO SAPNA ARCOS
[2019-01-07] MEDS ORDERED: ONDANSETRON ODT 4 MG PO PRN (19:30)
[2019-01-07] MEDS ORDERED: ACETAMINOPHEN 325 MG TABLET PO PRN (19:30)
[2019-01-07] MEDS ORDERED: INSULIN REGULAR, HUMAN 100 UNITS/ML, 3ML HIGH DOSE SS SQ-INSULIN SCH (21:00)
[2019-01-07] MEDS ORDERED: TEMPLATE NON-FORMULARY MED. (Insulin Aspart** (Novolog**) 0 UNITS) SQ-INSULIN SCH (21:00)
[2019-01-07] MEDS: CEFTRIAXONE PMX 1GM/50ML 50 ML IV SCH (21:09)
[2019-01-07] MEDS: ATORVASTATIN 40 MG TABLET PO SCH (21:15)
[2019-01-07] MEDS: GABAPENTIN 400 MG CAPSULE PO SCH (21:15)
[2019-01-07] MEDS: TRAZODONE 150MG TABLET PO SCH (21:15)
[2019-01-07] MEDS: SODIUM CHLORIDE 0.9% 1,000 ML IV SCH (21:24)
[2019-01-07] MEDS: morphine SULFATE 10 MG/ML, 1ML IVPush PRN (21:39)
[2019-01-07] MEDS: METRONIDAZOLE PMX 500MG/100ML 100 ML IV SCH (23:21)
[2019-01-08 01:03] VITALS: BP 110/65
[2019-01-08 04:45] LABS: ALBUMIN 2.6 g/dL (3.4-5.0); ANION GAP 5 mmol/L (5-15); CALCIUM 8.1 mg/dL (8.5-10.1); CHLORIDE 109 mmol/L (98-107)
[2019-01-08 04:51] LABS: ALANINE AMINOTRANSFERASE 26 U/L (12-78); ALKALINE PHOSPHATASE 57 U/L (45-117); BILIRUBIN,TOTAL 0.4 mg/dL (0.2-1.0); CREATININE 0.99 mg/dL (0.55-1.02); TOTAL PROTEIN 5.8 g/dL (6.4-8.2)
[2019-01-08] MEDS: LEVOTHYROXINE 150 MCG TABLET PO SCH ×2 (06:00→06:18)
[2019-01-08 06:03] LABS: MEAN CORPUSCULAR HEMOGLOBIN 28.2 pg (27.0-34.8); MEAN CORPUSCULAR HGB CONC 32.1 g/dL (32.4-35.8); MEAN CORPUSCULAR VOLUME 88.1 fL (80-100); MEAN PLATELET VOLUME 9.1 fL (7.4-10.4); PLATELET COUNT 113 x10^3/uL (130-400); RED BLOOD COUNT 4.11 x10^6/uL (3.82-5.3); RED CELL DISTRIBUTION WIDTH 14.8 % (9.6-15.2)
[2019-01-08 06:04] LABS: BASOPHILS # (AUTO) 0.04 x10^3/uL (0-0.1); BASOPHILS % (AUTO) 1 % (0-1); EOSINOPHILS # (AUTO) 0.16 x10^3/uL (0-0.4); EOSINOPHILS % (AUTO) 2 % (1-7); LYMPHOCYTES # (AUTO) 2.04 x10^3/uL (1-3.4); LYMPHOCYTES % (AUTO) 26 % (22-44); MD SCAN; MONOCYTES # (AUTO) 0.45 x10^3/uL (0.2-0.8); MONOCYTES % (AUTO) 6 % (2-9); NEUTROPHILS # (AUTO) 5.26 x10^3/uL (1.8-6.8); NEUTROPHILS % (AUTO) 66 % (42-75)
[2019-01-08] MEDS: OMEPRAZOLE 20 MG CAPSULE.DR PO SCH (06:18)
[2019-01-08] MEDS: morphine SULFATE 10 MG/ML, 1ML IVPush PRN ×2 (06:24→21:16)
[2019-01-08] MEDS ORDERED: INSULIN LISPRO 100 UNIT/ML, 3ML VIAL SQ-INSULIN SCH (07:00)
[2019-01-08] MEDS: SODIUM CHLORIDE 0.9% 1,000 ML IV SCH (07:25)
[2019-01-08] MEDS: METRONIDAZOLE PMX 500MG/100ML 100 ML IV SCH ×3 (07:25→23:26)
[2019-01-08 07:28] VITALS: BP 134/75
[2019-01-08] MEDS: ALBUTEROL SULFATE 2.5 MG/3 ML NPPB SCH ×2 (09:00→11:06)
[2019-01-08] MEDS: TEMPLATE NON-FORMULARY MED. (Fluticasone/Umeclidin/Vilanter (Trelegy Ellipta 100-62.5-25 HOMEINH SCH (09:00)
[2019-01-08] MEDS: MULTIVITAMIN 1 TABLET PO SCH (10:03)
[2019-01-08] MEDS: GABAPENTIN 400 MG CAPSULE PO SCH ×3 (10:03→20:57)
[2019-01-08] MEDS: EZETIMIBE 10 MG TABLET PO SCH (10:03)
[2019-01-08] MEDS: OMEGA-3/FISH OIL CAPSULE PO SCH (10:03)
[2019-01-08] MEDS: ROPINIROLE 1MG TABLET PO SCH ×2 (10:03→20:57)
[2019-01-08] MEDS: OXYcodone/APAP 7.5/325MG TABLET PO PRN ×2 (11:03→17:29)
[2019-01-08] MEDS: INSULIN LISPRO 100 UNITS/ML, PEN SQ-INSULIN SCH ×3 (11:18→22:00)
[2019-01-08] MEDS ORDERED: DEXTROSE 4 GM TAB.CHEW PO PRN (13:30)
[2019-01-08] MEDS ORDERED: DEXTROSE 50%, 50ML SYRINGE IVPush PRN (13:30)
[2019-01-08] MEDS ORDERED: GLUCAGON 1 MG IM PRN (13:30)
[2019-01-08 13:50] VITALS: BP 135/75
[2019-01-08 19:08] VITALS: BP 102/62
[2019-01-08] MEDS ORDERED: SODIUM CHLORIDE 0.9% 1,000 ML IV SCH (19:23)
[2019-01-08] MEDS: CEFTRIAXONE PMX 1GM/50ML 50 ML IV SCH (20:56)
[2019-01-08] MEDS: TRAZODONE 150MG TABLET PO SCH (20:57)
[2019-01-08] MEDS: ATORVASTATIN 40 MG TABLET PO SCH (20:58)
[2019-01-08] MEDS: SODIUM CHLORIDE FLUSH 10ML SYR IVF SCH (20:58)
[2019-01-08] MEDS ORDERED: INSULIN GLARGINE 100 UNITS/ML, PEN SQ-INSULIN SCH (21:00)
[2019-01-09 01:38] VITALS: BP 131/73
[2019-01-09] MEDS: ALBUTEROL SULFATE 2.5 MG/3 ML NPPB SCH ×3 (04:28→23:50)
[2019-01-09] MEDS: morphine SULFATE 10 MG/ML, 1ML IVPush PRN (04:47)
[2019-01-09 04:51] VITALS: BP 133/71
[2019-01-09 05:12] LABS: ALBUMIN 2.9 g/dL (3.4-5.0); ANION GAP 7 mmol/L (5-15); CALCIUM 8.4 mg/dL (8.5-10.1); CHLORIDE 109 mmol/L (98-107)
[2019-01-09 05:15] LABS: ALANINE AMINOTRANSFERASE 22 U/L (12-78); ALKALINE PHOSPHATASE 59 U/L (45-117); BASOPHILS # (AUTO) 0.05 x10^3/uL (0-0.1); BASOPHILS % (AUTO) 1 % (0-1); BILIRUBIN,TOTAL 0.3 mg/dL (0.2-1.0); EOSINOPHILS # (AUTO) 0.21 x10^3/uL (0-0.4); EOSINOPHILS % (AUTO) 3 % (1-7); LYMPHOCYTES # (AUTO) 3.06 x10^3/uL (1-3.4); LYMPHOCYTES % (AUTO) 44 % (22-44); MD NO; MEAN CORPUSCULAR HEMOGLOBIN 28.5 pg (27.0-34.8); MEAN CORPUSCULAR HGB CONC 32.3 g/dL (32.4-35.8); MEAN CORPUSCULAR VOLUME 88.4 fL (80-100); MEAN PLATELET VOLUME 8.3 fL (7.4-10.4); MONOCYTES # (AUTO) 0.38 x10^3/uL (0.2-0.8); MONOCYTES % (AUTO) 6 % (2-9); NEUTROPHILS # (AUTO) 3.31 x10^3/uL (1.8-6.8); NEUTROPHILS % (AUTO) 47 % (42-75); PLATELET COUNT 188 x10^3/uL (130-400); RED BLOOD COUNT 3.95 x10^6/uL (3.82-5.3); RED CELL DISTRIBUTION WIDTH 14.9 % (9.6-15.2); TOTAL PROTEIN 6.1 g/dL (6.4-8.2)
[2019-01-09] MEDS: OMEPRAZOLE 20 MG CAPSULE.DR PO SCH (06:47)
[2019-01-09] MEDS: LEVOTHYROXINE 150 MCG TABLET PO SCH (06:48)
[2019-01-09 06:49] VITALS: BP 131/74
[2019-01-09] MEDS: INSULIN LISPRO 100 UNITS/ML, PEN SQ-INSULIN SCH ×4 (07:43→20:39)
[2019-01-09] MEDS: MULTIVITAMIN 1 TABLET PO SCH (07:44)
[2019-01-09] MEDS: TEMPLATE NON-FORMULARY MED. (Fluticasone/Umeclidin/Vilanter (Trelegy Ellipta 100-62.5-25 HOMEINH SCH (07:44)
[2019-01-09] MEDS: GABAPENTIN 400 MG CAPSULE PO SCH ×3 (07:44→20:39)
[2019-01-09] MEDS: EZETIMIBE 10 MG TABLET PO SCH (07:44)
[2019-01-09] MEDS: OMEGA-3/FISH OIL CAPSULE PO SCH (07:45)
[2019-01-09] MEDS: ROPINIROLE 1MG TABLET PO SCH ×2 (07:45→20:40)
[2019-01-09] MEDS: OXYcodone/APAP 7.5/325MG TABLET PO PRN ×3 (07:47→20:41)
[2019-01-09] MEDS: SODIUM CHLORIDE FLUSH 10ML SYR IVF SCH ×2 (07:47→20:41)
[2019-01-09] MEDS: METRONIDAZOLE PMX 500MG/100ML 100 ML IV SCH ×2 (09:02→17:15)
[2019-01-09] MEDS ORDERED: ASPIRIN 81 MG TABLET CHEW PO ONE (11:30)
[2019-01-09 12:13] LABS: TROPONIN I < 0.015 ng/mL (0.000-0.045)
[2019-01-09 13:10] VITALS: BP 101/61
[2019-01-09 16:05] LABS: TROPONIN I < 0.015 ng/mL (0.000-0.045)
[2019-01-09 19:14] VITALS: BP 105/65
[2019-01-09] MEDS ORDERED: SODIUM CHLORIDE 0.9% 1,000 ML IV SCH (19:23)
[2019-01-09] MEDS: CEFTRIAXONE PMX 1GM/50ML 50 ML IV SCH (20:37)
[2019-01-09] MEDS: DOCUSATE 100 MG CAPSULE PO SCH (20:39)
[2019-01-09] MEDS: TRAZODONE 150MG TABLET PO SCH (20:39)
[2019-01-09] MEDS: ATORVASTATIN 40 MG TABLET PO SCH (20:40)
[2019-01-09] MEDS ORDERED: MAGNESIUM HYDROXIDE 8%, 30ML UDC PO SCH (21:00)
[2019-01-09] MEDS ORDERED: INSULIN GLARGINE 100 UNITS/ML, PEN SQ-INSULIN SCH ×2 (21:00)
[2019-01-10 01:07] VITALS: BP 111/68
[2019-01-10] MEDS: METRONIDAZOLE PMX 500MG/100ML 100 ML IV SCH ×2 (01:08→09:16)
[2019-01-10] MEDS: OXYcodone/APAP 7.5/325MG TABLET PO PRN ×2 (04:48→11:58)
[2019-01-10] MEDS: ALBUTEROL SULFATE 2.5 MG/3 ML NPPB PRN ×2 (04:53→09:15)
[2019-01-10 05:06] LABS: ALANINE AMINOTRANSFERASE 27 U/L (12-78); ALBUMIN 2.9 g/dL (3.4-5.0); ANION GAP 6 mmol/L (5-15); BASOPHILS # (AUTO) 0.12 x10^3/uL (0-0.1); BASOPHILS % (AUTO) 2 % (0-1); CALCIUM 8.8 mg/dL (8.5-10.1); CHLORIDE 110 mmol/L (98-107); CREATININE 1.11 mg/dL (0.55-1.02); EOSINOPHILS % (AUTO) 4 % (1-7); LYMPHOCYTES # (AUTO) 2.22 x10^3/uL (1-3.4); LYMPHOCYTES % (AUTO) 30 % (22-44); MD NO; MEAN CORPUSCULAR HEMOGLOBIN 28.8 pg (27.0-34.8); MEAN CORPUSCULAR HGB CONC 31.9 g/dL (32.4-35.8); MEAN CORPUSCULAR VOLUME 90.2 fL (80-100); MEAN PLATELET VOLUME 9.4 fL (7.4-10.4); MONOCYTES # (AUTO) 0.42 x10^3/uL (0.2-0.8); MONOCYTES % (AUTO) 6 % (2-9); NEUTROPHILS # (AUTO) 4.41 x10^3/uL (1.8-6.8); NEUTROPHILS % (AUTO) 59 % (42-75); PLATELET COUNT 203 x10^3/uL (130-400); RED BLOOD COUNT 3.98 x10^6/uL (3.82-5.3); RED CELL DISTRIBUTION WIDTH 14.9 % (9.6-15.2)
[2019-01-10 05:09] LABS: ALKALINE PHOSPHATASE 58 U/L (45-117); BILIRUBIN,TOTAL 0.4 mg/dL (0.2-1.0); TOTAL PROTEIN 6.3 g/dL (6.4-8.2)
[2019-01-10] MEDS: LEVOTHYROXINE 150 MCG TABLET PO SCH (06:17)
[2019-01-10 06:50] VITALS: BP 119/71
[2019-01-10] MEDS: DOCUSATE 100 MG CAPSULE PO SCH (09:00)
[2019-01-10] MEDS: TEMPLATE NON-FORMULARY MED. (Fluticasone/Umeclidin/Vilanter (Trelegy Ellipta 100-62.5-25 HOMEINH SCH (09:00)
[2019-01-10] MEDS: OMEPRAZOLE 20 MG CAPSULE.DR PO SCH (09:15)
[2019-01-10] MEDS: EZETIMIBE 10 MG TABLET PO SCH (09:15)
[2019-01-10] MEDS: ROPINIROLE 1MG TABLET PO SCH (09:15)
[2019-01-10] MEDS: MULTIVITAMIN 1 TABLET PO SCH (09:16)
[2019-01-10] MEDS: GABAPENTIN 400 MG CAPSULE PO SCH ×2 (09:16→16:00)
[2019-01-10] MEDS: OMEGA-3/FISH OIL CAPSULE PO SCH (09:16)
[2019-01-10] MEDS: SODIUM CHLORIDE FLUSH 10ML SYR IVF SCH (09:16)
[2019-01-10] MEDS: INSULIN LISPRO 100 UNITS/ML, PEN SQ-INSULIN SCH ×3 (09:21→16:34)
[2019-01-10 12:32] VITALS: BP 134/65
[2019-01-10] MEDS ORDERED: CEFD300C37 PO (15:27)
[2019-01-10] MEDS ORDERED: METR500T PO (15:27)
[2019-01-10] MEDS ORDERED: INSULIN GLARGINE 100 UNITS/ML, PEN SQ-INSULIN SCH (21:00)
== END 2019-01-10 17:35 | disposition home health service (06) | DRG 378 ==
LOC: ED 16:10 → EDIP 18:19 → 3N 20:07 → DCLOUNGE 01-10 16:48
PROVIDERS: ADMIT Family Medicine; ATTEND Family Medicine
DX: K57.33 Diverticulitis of large intestine without perforation or abscess with bleeding (principal); E87.2 Acidosis; J96.11 Chronic respiratory failure with hypoxia; E03.9 Hypothyroidism, unspecified; E11.51 Type 2 diabetes mellitus with diabetic peripheral angiopathy without gangrene; E86.0 Dehydration; G47.33 Obstructive sleep apnea (adult) (pediatric); G25.81 Restless legs syndrome; I11.0 Hypertensive heart disease with heart failure; I44.7 Left bundle-branch block, unspecified; J44.9 Chronic obstructive pulmonary disease, unspecified; Z66 Do not resuscitate; M10.9 Gout, unspecified; Z79.4 Long term (current) use of insulin; Z85.828 Personal history of other malignant neoplasm of skin; Z90.710 Acquired absence of both cervix and uterus
CPT/HCPCS: 36415; 71045; 74176; 80053; 81001; 82962; 83036; 83605; 83690; 83735; 83880; 84443; 84484; 85025; 87040; 87077; 87086; 87147; 87186; 87400; 93005; 93306; 94640; 99285; G0378; J0696; J7613; J1815; J1817; J2270; J3490; J7030

== ENCOUNTER 2019-08-20 00:34 | Emergency (ER) | payer MEDICARE, MEDICAID ==
[~2019-08-20] VITALS: Ht 162.6 cm; Wt 115.0 kg
[~2019-08-20 00:34] MED LIST changes: +GABA800T5 PO; -ROPI1TAB2 PO; +ROPI1TAB4 PO; -ROPI2TAB4 PO; +ROPI2TAB8 PO
--- NOTE | 2019-08-20 01:08 | NUR ---
THIS PT CAME FROM HOME AFTER SHE CALLED 911 WHEN SHE REALIZED SHE TOOK 50 UNITS OF HER SHORT ACTING INSULIN INSTEAD OF THE LONG ACTING INSULIN. INTIAL BS WITH [facility] WAS 260, UPON ARRIVAL [facility] WAS 153. PT IS A&OX4, AWAKE TO EAT, BUT STATES SHE IS TIRED. ERP HAS BEEN TO BEDSIDE, FS Q 30MINUTES TO BE DONE PER ERP.
[2019-08-20 01:40] LABS: BASOPHILS # (AUTO) 0.04 x10^3/uL (0-0.1); BASOPHILS % (AUTO) 0 % (0-1); EOSINOPHILS # (AUTO) 0.17 x10^3/uL (0-0.4); EOSINOPHILS % (AUTO) 2 % (1-7); LYMPHOCYTES # (AUTO) 2.32 x10^3/uL (1-3.4); LYMPHOCYTES % (AUTO) 24 % (22-44); MD NO; MEAN CORPUSCULAR HEMOGLOBIN 28.1 pg (27.0-34.8); MEAN CORPUSCULAR HGB CONC 31.8 g/dL (32.4-35.8); MEAN CORPUSCULAR VOLUME 88.3 fL (80-100); MEAN PLATELET VOLUME 8.5 fL (7.4-10.4); MONOCYTES # (AUTO) 0.52 x10^3/uL (0.2-0.8); MONOCYTES % (AUTO) 5 % (2-9); NEUTROPHILS # (AUTO) 6.69 x10^3/uL (1.8-6.8); NEUTROPHILS % (AUTO) 69 % (42-75); PLATELET COUNT 329 x10^3/uL (130-400); RED BLOOD COUNT 4.35 x10^6/uL (3.82-5.3); RED CELL DISTRIBUTION WIDTH 13.8 % (9.6-15.2)
[2019-08-20 01:46] LABS: ALANINE AMINOTRANSFERASE 30 U/L (12-78); ALBUMIN 3.5 g/dL (3.4-5.0); ANION GAP 8 mmol/L (5-15); CHLORIDE 105 mmol/L (98-107); CREATININE 1.04 mg/dL (0.55-1.02)
[2019-08-20 01:49] LABS: ALKALINE PHOSPHATASE 69 U/L (45-117); BILIRUBIN,TOTAL 0.2 mg/dL (0.2-1.0); TOTAL PROTEIN 7.3 g/dL (6.4-8.2)
--- NOTE | 2019-08-20 02:13 | NUR ---
PT TOOK OFF BP CUFF TO LAY ON SIDE TO SLEEP, REMAINS ON O2 MONITOR. SIDE RAILS UP. WILL CONTINUE TO MONITOR.
--- NOTE | 2019-08-20 02:34 | NUR ---
PT ABLE TO TRANSFER TO BEDSIDE COMMODE WITH ASSIST X1.
--- NOTE | 2019-08-20 03:02 | NUR ---
PT GIVEN CRACKERS AND PEANUT BUTTER AND ORANGE JUICE, SITTING UP EATING AT THIS TIME.
--- NOTE | 2019-08-20 03:32 | NUR ---
PT SITTING UP IN BED PLAYING ON IPAD
[2019-08-20] MEDS ORDERED: ACETAMINOPHEN 325 MG TABLET ONE (04:21)
--- NOTE | 2019-08-20 04:26 | NUR ---
PT COMPLAINED OF SPARKS, MEDICATED TO APR. GIVEN MORE ORANGE JUICE TO TAKE MEDS WITH.
[2019-08-20] MEDS ORDERED: ACETAMINOPHEN 325 MG TABLET PO ONE (04:30)
[2019-08-20 05:25] VITALS: BP 133/59
--- NOTE | 2019-08-20 06:52 | NUR ---
PT UP TO BEDSIDE COMMODE WITH ASSIST X 1.
--- NOTE | 2019-08-20 06:59 | NUR ---
REPORT GIVEN TO ISRRAEL ADLER AND ISRRAEL ROSS.
--- NOTE | 2019-08-20 07:30 | NUR ---
Patient given discharge instructions and they have confirmed that they understand the instructions.
== END 2019-08-20 07:31 | disposition home or self-care (01) ==
LOC: ED 01:52
DX: T38.3X1A Poisoning by insulin and oral hypoglycemic [antidiabetic] drugs, accidental (unintentional), initial encounter (principal); R51 Headache; R06.02 Shortness of breath; J44.9 Chronic obstructive pulmonary disease, unspecified; E11.65 Type 2 diabetes mellitus with hyperglycemia; I11.0 Hypertensive heart disease with heart failure; I50.9 Heart failure, unspecified; M10.9 Gout, unspecified; Y92.89 Other specified places as the place of occurrence of the external cause
CPT/HCPCS: 80053; 82962; 85025; 99285

== ENCOUNTER → 2020-06-01 | Outpatient (CLI) | payer MEDICARE ==
[~2020-06-01] MED LIST changes: -ASPI-515 PO; +ASPI-963 PO; -HYDR-3245 PO; +HYDR1TAB53 PO; -LISI-420 PO; +LISI20TA21 PO; -OXYC-306 PO; +OXYC1TAB17 PO
== END | disposition home or self-care (01) ==
LOC: RAD 14:02
PROVIDERS: ATTEND Podiatrist Foot & Ankle Surgery
DX: M84.375A Stress fracture, left foot, initial encounter for fracture (principal); M19.072 Primary osteoarthritis, left ankle and foot

== ENCOUNTER → 2020-07-27 | Outpatient (CLI) | payer MEDICARE ==
[~2020-07-27] MED LIST changes: -OMEP40CA42 PO; +OMEP40CA8 PO
== END | disposition home or self-care (01) ==
LOC: CFH 13:35
PROVIDERS: ATTEND Physician Assistant Surgical
DX: M47.26 Other spondylosis with radiculopathy, lumbar region (principal); M48.061 Spinal stenosis, lumbar region without neurogenic claudication
CPT/HCPCS: 72148

== ENCOUNTER → 2020-09-03 | Outpatient (CLI) | payer MEDICARE ==
[~2020-09-03] MED LIST changes: +REGADENOSON 0.4 MG/5 ML SYRINGE ONE
== END | disposition home or self-care (01) ==
LOC: CFH 08-31 07:47
PROVIDERS: ATTEND Internal Medicine Cardiovascular Disease
DX: Z01.810 Encounter for preprocedural cardiovascular examination (principal); I10 Essential (primary) hypertension; E78.5 Hyperlipidemia, unspecified; E11.9 Type 2 diabetes mellitus without complications; I44.7 Left bundle-branch block, unspecified
CPT/HCPCS: 78452; 93017; A9502; J2785

== ENCOUNTER → 2020-09-07 | Outpatient (CLI) | payer MEDICARE ==
[~2020-09-07] MED LIST changes: -REGADENOSON 0.4 MG/5 ML SYRINGE ONE
== END | disposition home or self-care (01) ==
LOC: CFH 09:14
PROVIDERS: ATTEND Registered Nurse
DX: J43.2 Centrilobular emphysema (principal); R91.1 Solitary pulmonary nodule; J43.9 Emphysema, unspecified; I50.32 Chronic diastolic (congestive) heart failure; J96.11 Chronic respiratory failure with hypoxia
CPT/HCPCS: 71250

== ENCOUNTER 2020-10-06 14:10 | Outpatient (CLI) | payer MEDICARE ==
[~2020-10-06 14:10] MED LIST changes: +OXYC1TAB16 PO; -OXYC1TAB17 PO
[2020-10-06] MEDS ORDERED: SPIR25TA5 PO (15:14)
[2020-10-06] MEDS ORDERED: ACET325T14 PO (15:14)
[2020-10-06] MEDS ORDERED: FLUT9.9S NAS (15:14)
[2020-10-06] MEDS ORDERED: LOSA25TA25 PO (15:14)
[2020-10-06] MEDS ORDERED: ASCO100018 PO (15:14)
[2020-10-06] MEDS ORDERED: CLOT15CR26 TP (15:14)
[2020-10-06] MEDS ORDERED: CYCL10TA2 PO (15:14)
[2020-10-06] MEDS ORDERED: ASPI81TA45 PO (15:14)
[2020-10-06] MEDS ORDERED: DRY EYE DROPS EACHEYE (15:14)
[2020-10-06] MEDS ORDERED: BUME1TAB21 PO (15:14)
[2020-10-06] MEDS ORDERED: CALC1CAP8 PO (15:14)
[2020-10-06] MEDS ORDERED: CHOL10003 PO (15:14)
[2020-10-06] MEDS ORDERED: FIBER (15:14)
[2020-10-06] MEDS ORDERED: LISI-167 PO (15:14)
[2020-10-06] MEDS ORDERED: CYAN100028 PO (15:14)
[2020-10-06 15:25] LABS: BASOPHILS % (AUTO) 1 % (0-1); EOSINOPHILS % (AUTO) 2 % (1-7); LYMPHOCYTES % (AUTO) 31 % (22-44); MEAN CORPUSCULAR HEMOGLOBIN 27.9 pg (27.0-34.8); MEAN CORPUSCULAR HGB CONC 32.6 g/dL (32.4-35.8); MEAN PLATELET VOLUME 8.7 fL (7.4-10.4); MONOCYTES % (AUTO) 7 % (2-9); NEUTROPHILS % (AUTO) 59 % (42-75); PLATELET COUNT 225 x10^3/uL (130-400); RED BLOOD COUNT 4.31 x10^6/uL (3.82-5.3); RED CELL DISTRIBUTION WIDTH 14.1 % (9.6-15.2)
[2020-10-06 15:27] LABS: MICROSCOPIC AUTO
[2020-10-06 15:32] LABS: ALANINE AMINOTRANSFERASE 24 U/L (12-78); ALBUMIN 3.5 g/dL (3.4-5.0); ANION GAP 6 mmol/L (5-15); CALCIUM 8.8 mg/dL (8.5-10.1); CHLORIDE 105 mmol/L (98-107); CREATININE 1.06 mg/dL (0.55-1.02)
[2020-10-06 15:34] LABS: INTERNATIONAL NORMALIZED RATIO 1.02 (0.93-1.1); PROTHROMBIN TIME 10.9 Seconds (9.6-11.5)
[2020-10-06 15:35] LABS: ALKALINE PHOSPHATASE 92 U/L (45-117); BILIRUBIN,TOTAL 0.2 mg/dL (0.2-1.0); TOTAL PROTEIN 7.2 g/dL (6.4-8.2)
== END 2020-10-06 23:59 | disposition home or self-care (01) ==
LOC: STAR 14:10
PROVIDERS: ATTEND Neurological Surgery
DX: Z01.818 Encounter for other preprocedural examination (principal); Z01.812 Encounter for preprocedural laboratory examination; Z01.811 Encounter for preprocedural respiratory examination; Z01.810 Encounter for preprocedural cardiovascular examination; M48.061 Spinal stenosis, lumbar region without neurogenic claudication; R79.1 Abnormal coagulation profile; R94.31 Abnormal electrocardiogram [ECG] [EKG]; R82.90 Unspecified abnormal findings in urine; M47.814 Spondylosis without myelopathy or radiculopathy, thoracic region; I44.7 Left bundle-branch block, unspecified
CPT/HCPCS: 36415; 71046; 72110; 80053; 81001; 85025; 85610; 85730; 87086; 93005

== ENCOUNTER 2020-10-16 05:36 | Inpatient (IN) | payer MEDICARE ==
[~2020-10-16] VITALS: Ht 165.1 cm; Wt 107.6 kg
[~2020-10-16 05:36] MED LIST changes: +ACET325T14 PO; +ASCO100018 PO; +ASPI81TA45 PO; +BUME1TAB21 PO; +CALC1CAP8 PO; +CHOL10003 PO; +CLOT15CR26 TP; +CYAN100028 PO; +CYCL10TA2 PO; +DRY EYE DROPS EACHEYE; +FIBER; +FLUT9.9S NAS; +LISI-167 PO; +LOSA25TA25 PO; +SPIR25TA5 PO
[2020-10-16] MEDS: LEVOTHYROXINE 175 MCG TABLET PO SCH (06:00)
[2020-10-16] MEDS ORDERED: BUPIVACAINE/PF 0.5% ONE (06:06)
[2020-10-16] MEDS ORDERED: EPINEPHRINE 1 MG/ML, 1ML ONE (06:06)
[2020-10-16] MEDS ORDERED: VANCOMYCIN 1,000 MG ONE (06:06)
[2020-10-16 06:17] VITALS: BP 143/83
[2020-10-16] MEDS ORDERED: CHLORHEXIDINE 15 ML UDC PO ONE (06:30)
[2020-10-16] MEDS ORDERED: LACTATED RINGERS 1,000 ML IV SCH (06:30)
[2020-10-16] MEDS ORDERED: FENTANYL PF 100 MCG/2ML ONE ×4 (06:57→09:14)
[2020-10-16] MEDS ORDERED: PROPOFOL 50 ML ONE ×2 (07:05→08:01)
[2020-10-16] MEDS ORDERED: ONDANSETRON 2MG/ML, 2ML IVPush PRN ×2 (08:00→09:00)
[2020-10-16] MEDS ORDERED: OXYcodone 5 MG/5 ML ORAL.SOL UDC PO PRN (08:00)
[2020-10-16] MEDS ORDERED: ONDANSETRON 2MG/ML, 2ML ONE (08:00)
[2020-10-16] MEDS ORDERED: PROMETHAZINE 25 MG/ML, 1ML IVPush PRN (08:00)
[2020-10-16] MEDS ORDERED: CEFAZOLIN 1,000 MG ONE (08:00)
[2020-10-16] MEDS ORDERED: GLYCOPYRROLATE 0.2MG/1ML, 5ML ONE (08:00)
[2020-10-16] MEDS ORDERED: PROPOFOL 10 MG/ML, 20ML ONE (08:00)
[2020-10-16] MEDS ORDERED: DEXAMETHASONE 4 MG/ML, 1ML ONE (08:00)
[2020-10-16] MEDS ORDERED: HYDROcodone/APAP 7.5-325MG/15ML UDC PO PRN (08:00)
[2020-10-16] MEDS ORDERED: SUCCINYLCHOLINE 20 MG/ML, 10ML ONE (08:00)
[2020-10-16] MEDS ORDERED: NEOSTIGMINE 1 MG/ML, 10ML ONE (08:00)
[2020-10-16] MEDS ORDERED: HYDROmorphone 1 MG/ML, 1ML INJ IVPush PRN (08:00)
[2020-10-16] MEDS ORDERED: ROCURONIUM 10MG/ML,5ML ONE (08:00)
[2020-10-16] MEDS ORDERED: LORazepam 2 MG/ML, 1ML ONE (08:48)
[2020-10-16] MEDS ORDERED: OXYcodone 5 MG/5 ML ORAL.SOL UDC ONE (08:53)
[2020-10-16] MEDS: FENTANYL PF 100 MCG/2ML IV PRN ×5 (08:54→09:53)
[2020-10-16] MEDS: CYANOCOBALAMIN 1,000 MCG TABLET PO SCH (09:00)
[2020-10-16] MEDS ORDERED: PHARMACY MAY ADJ FOR RENAL FX MC PRN (09:00)
[2020-10-16] MEDS ORDERED: MAGNESIUM HYDROXIDE 8%, 30ML UDC PO PRN (09:00)
[2020-10-16] MEDS ORDERED: INSULIN REGULAR 100 UNITS/ML, 3ML VIAL SQ-INSULIN PRN (09:00)
[2020-10-16] MEDS: CALCIUM/VITAMIN D3 250-125 TABLET PO SCH (09:00)
[2020-10-16] MEDS ORDERED: METHOCARBAMOL 1,000 MG in DEXTROSE 5% 100 ML IV ONE (09:00)
[2020-10-16] MEDS: SODIUM CHLORIDE FLUSH 10ML SYR IVF SCH ×2 (09:00→22:26)
[2020-10-16] MEDS: CHOLECALCIFEROL 1,000 UNIT TABLET PO SCH (09:00)
[2020-10-16] MEDS ORDERED: ALBUTEROL HFA 90 MCG/SPRAY INH PRN (09:00)
[2020-10-16] MEDS: ROPINIROLE 1MG TABLET PO SCH ×2 (09:00→22:15)
[2020-10-16] MEDS: LOSARTAN 25MG TABLET PO SCH (09:00)
[2020-10-16] MEDS: FLUTICASONE NASAL SPRAY 16GM NAS SCH (09:00)
[2020-10-16] MEDS: SPIRONOLACTONE 25 MG TABLET PO SCH (09:00)
[2020-10-16] MEDS: MULTIVITAMIN 1 TABLET PO SCH (09:00)
[2020-10-16] MEDS: LISINOPRIL 10 MG TABLET PO SCH (09:00)
[2020-10-16] MEDS ORDERED: LORazepam 2 MG/ML, 1ML IVPush PRN (09:00)
[2020-10-16] MEDS: GABAPENTIN 400 MG CAPSULE PO SCH ×3 (09:00→22:15)
[2020-10-16] MEDS: OMEPRAZOLE 20 MG CAPSULE.DR PO SCH (09:00)
[2020-10-16] MEDS: (Fluticasone/Umeclidin/Vilanter (Trelegy Ellipta 100-62.5-25) HOMEINH SCH (09:00)
[2020-10-16] MEDS ORDERED: LABETALOL 5MG/ML, 20ML IVPush PRN (09:00)
[2020-10-16] MEDS ORDERED: DIPHENHYDRAMINE 50 MG/ML, 1ML IVPush PRN (09:00)
[2020-10-16] MEDS ORDERED: BUMETANIDE 1 MG TABLET PO SCH (09:00)
[2020-10-16] MEDS ORDERED: POLYETHYLENE GLYCOL 17 GM PACKET PO PRN (09:00)
[2020-10-16] MEDS: NS + 20MEQ KCL 1,000 ML IV SCH (09:00)
[2020-10-16] MEDS: ASCORBIC ACID 500 MG TABLET PO SCH (09:00)
[2020-10-16] MEDS ORDERED: BISACODYL 10 MG SUPP PR PRN (09:00)
[2020-10-16] MEDS ORDERED: MEPERIDINE/PF 25MG/ML,1ML ONE ×2 (09:04→09:45)
[2020-10-16] MEDS: MEPERIDINE/PF 25MG/0.5ML IVPush PRN ×2 (09:06→09:48)
[2020-10-16] MEDS ORDERED: LABETALOL 5MG/ML, 20ML ONE (09:10)
[2020-10-16] MEDS ORDERED: OXYcodone/APAP 5/325MG TABLET ONE (10:19)
[2020-10-16] MEDS: OXYcodone/APAP 5/325MG TABLET PO PRN ×3 (10:26→18:20)
[2020-10-16] MEDS ORDERED: TEMPLATE NON-FORMULARY MED. (Insulin Aspart** (Novolog**) 0 UNITS) SQ-INSULIN SCH (11:00)
[2020-10-16] MEDS ORDERED: INSULIN SINGLE DOSE, ER ONE (14:10)
[2020-10-16] MEDS: HYDROmorphone 1 MG/ML, 1ML INJ IVPush PRN ×3 (14:40→23:57)
[2020-10-16] MEDS ORDERED: HYDROmorphone 2 MG/ML, 1ML ONE ×3 (14:53→23:53)
[2020-10-16] MEDS: CEFAZOLIN PMX 1GM/50ML 50 ML IVPB SCH ×2 (15:07→22:41)
[2020-10-16] MEDS: [UNRECOGNIZED DRUG - REMARK] MC SCH (20:00)
[2020-10-16] MEDS: DETEMIR MC SCH (20:00)
[2020-10-16 20:09] VITALS: BP 123/70
[2020-10-16] MEDS: INSULIN LISPRO 100 UNITS/ML, PEN 3ML SS HIGH DOSE SQ-INSULIN SCH (20:50)
[2020-10-16] MEDS: ATORVASTATIN 40 MG TABLET PO SCH (22:14)
[2020-10-16] MEDS: TRAZODONE 100MG TABLET PO SCH (22:14)
[2020-10-16] MEDS: HYDROcodone/APAP 10/325 MG TABLET PO PRN (22:16)
[2020-10-16] MEDS: INSULIN GLARGINE 100 UNITS/ML, PEN SQ-INSULIN SCH (22:16)
[2020-10-16 23:54] VITALS: BP 144/78
[2020-10-17 00:25] VITALS: BP 144/78
[2020-10-17] MEDS: OXYcodone/APAP 5/325MG TABLET PO PRN (02:16)
[2020-10-17] MEDS: DETEMIR MC SCH ×2 (04:00→12:00)
[2020-10-17] MEDS ORDERED: HYDROmorphone 2 MG/ML, 1ML ONE ×4 (04:00→23:13)
[2020-10-17] MEDS: [UNRECOGNIZED DRUG - REMARK] MC SCH (04:00)
[2020-10-17] MEDS: NS + 20MEQ KCL 1,000 ML IV SCH ×2 (04:04→20:12)
[2020-10-17] MEDS: HYDROmorphone 1 MG/ML, 1ML INJ IVPush PRN ×5 (04:05→23:18)
[2020-10-17 04:16] VITALS: BP 128/64
[2020-10-17] MEDS ORDERED: BUPIVACAINE/PF 0.5% ONE (05:51)
[2020-10-17] MEDS ORDERED: VANCOMYCIN 1,000 MG ONE (05:51)
[2020-10-17] MEDS ORDERED: EPINEPHRINE 1 MG/ML, 1ML ONE (05:51)
[2020-10-17] MEDS: LEVOTHYROXINE 175 MCG TABLET PO SCH (06:07)
[2020-10-17 06:24] LABS: ANION GAP 2 mmol/L (5-15); CALCIUM 8.9 mg/dL (8.5-10.1); CHLORIDE 101 mmol/L (98-107); CREATININE 1.12 mg/dL (0.55-1.02)
[2020-10-17 06:34] LABS: BASOPHILS % (AUTO) 1 % (0-1); EOSINOPHILS % (AUTO) 0 % (1-7); LYMPHOCYTES % (AUTO) 17 % (22-44); MEAN CORPUSCULAR HEMOGLOBIN 27.8 pg (27.0-34.8); MEAN CORPUSCULAR HGB CONC 32.4 g/dL (32.4-35.8); MEAN PLATELET VOLUME 10.3 fL (7.4-10.4); MONOCYTES % (AUTO) 8 % (2-9); NEUTROPHILS % (AUTO) 75 % (42-75); PLATELET COUNT 192 x10^3/uL (130-400); RED BLOOD COUNT 4.08 x10^6/uL (3.82-5.3); RED CELL DISTRIBUTION WIDTH 14.4 % (9.6-15.2)
[2020-10-17] MEDS ORDERED: hydrALAzine 20 MG/ML, 1ML IV PRN (07:00)
[2020-10-17] MEDS ORDERED: ONDANSETRON 2MG/ML, 2ML IVPush PRN (07:00)
[2020-10-17] MEDS ORDERED: LABETALOL 5MG/ML, 20ML IV PRN (07:00)
[2020-10-17] MEDS ORDERED: OXYcodone 5 MG/5 ML ORAL.SOL UDC PO PRN (07:00)
[2020-10-17] MEDS ORDERED: EPHEDRINE 50 MG/ML, 1ML IVPush PRN (07:00)
[2020-10-17] MEDS ORDERED: HYDROmorphone 1 MG/ML, 1ML INJ IVPush PRN (07:00)
[2020-10-17] MEDS ORDERED: ACETAMINOPHEN 325 MG TABLET PO PRN (07:00)
[2020-10-17] MEDS ORDERED: PROMETHAZINE 25 MG/ML, 1ML IVPush PRN (07:00)
[2020-10-17] MEDS: INSULIN LISPRO 100 UNITS/ML, PEN 3ML SS HIGH DOSE SQ-INSULIN SCH ×4 (08:42→20:38)
[2020-10-17] MEDS: GABAPENTIN 400 MG CAPSULE PO SCH ×3 (08:42→20:27)
[2020-10-17] MEDS: ROPINIROLE 1MG TABLET PO SCH ×2 (08:42→20:27)
[2020-10-17] MEDS: OMEPRAZOLE 20 MG CAPSULE.DR PO SCH (08:43)
[2020-10-17] MEDS: SPIRONOLACTONE 25 MG TABLET PO SCH (08:43)
[2020-10-17] MEDS: FLUTICASONE NASAL SPRAY 16GM NAS SCH (08:43)
[2020-10-17] MEDS: MULTIVITAMIN 1 TABLET PO SCH (08:43)
[2020-10-17] MEDS: LOSARTAN 25MG TABLET PO SCH (08:43)
[2020-10-17] MEDS: CALCIUM/VITAMIN D3 250-125 TABLET PO SCH (08:43)
[2020-10-17] MEDS: SODIUM CHLORIDE FLUSH 10ML SYR IVF SCH ×2 (08:43→20:27)
[2020-10-17] MEDS: (Fluticasone/Umeclidin/Vilanter (Trelegy Ellipta 100-62.5-25) HOMEINH SCH (08:43)
[2020-10-17] MEDS: LISINOPRIL 10 MG TABLET PO SCH (08:44)
[2020-10-17] MEDS: CYANOCOBALAMIN 1,000 MCG TABLET PO SCH (08:46)
[2020-10-17] MEDS: ASCORBIC ACID 500 MG TABLET PO SCH (08:47)
[2020-10-17] MEDS: CHOLECALCIFEROL 1,000 UNIT TABLET PO SCH (08:47)
[2020-10-17 08:55] VITALS: BP 137/69
[2020-10-17] MEDS ORDERED: FENTANYL PF 250 MCG/5ML ONE (11:54)
[2020-10-17] MEDS ORDERED: ONDANSETRON 2MG/ML, 2ML ONE (11:57)
[2020-10-17] MEDS ORDERED: PROPOFOL 10 MG/ML, 20ML ONE (11:57)
[2020-10-17] MEDS ORDERED: CEFAZOLIN 1,000 MG ONE (11:57)
[2020-10-17] MEDS ORDERED: SODIUM CHLORIDE 0.9% PF 10ML ONE (11:57)
[2020-10-17] MEDS ORDERED: DEXAMETHASONE 4 MG/ML, 1ML ONE (11:57)
[2020-10-17] MEDS ORDERED: LIDOCAINE-MPF 2% ,5ML ONE (11:57)
[2020-10-17] MEDS ORDERED: SUCCINYLCHOLINE 20 MG/ML, 10ML ONE (11:57)
[2020-10-17] MEDS ORDERED: PROPOFOL 50 ML ONE ×2 (12:40→13:23)
[2020-10-17] MEDS ORDERED: EPHEDRINE 50 MG/ML, 1ML ONE (12:51)
[2020-10-17] MEDS ORDERED: BUPIVACAINE LIPOSOME/PF 10ML INFIL ONE ×2 (13:00→13:10)
[2020-10-17] MEDS ORDERED: FENTANYL PF 100 MCG/2ML ONE ×3 (13:00→14:33)
[2020-10-17] MEDS ORDERED: PHENYLEPHRINE 10 MG/ML ONE (13:10)
[2020-10-17] MEDS ORDERED: METHOCARBAMOL 1,000 MG in DEXTROSE 5% 100 ML IV PRN (13:30)
[2020-10-17] MEDS ORDERED: OXYcodone 5 MG/5 ML ORAL.SOL UDC ONE (14:33)
[2020-10-17] MEDS: FENTANYL PF 100 MCG/2ML IV PRN ×2 (14:38→15:02)
[2020-10-17] MEDS ORDERED: INSU100V13 SC ×2 (16:15→17:14)
[2020-10-17] MEDS ORDERED: PHARMACY INSTRUCTION MC ONE ×2 (16:30)
[2020-10-17] MEDS ORDERED: NS + 20MEQ KCL 1,000 ML IV SCH (17:00)
[2020-10-17] MEDS ORDERED: CEFAZOLIN PMX 1GM/50ML 50 ML IVPB SCH (17:00)
[2020-10-17] MEDS: HYDROcodone/APAP 10/325 MG TABLET PO PRN (19:46)
[2020-10-17] MEDS: CEFAZOLIN PMX 1GM/50ML 50 ML IVPB SCH (20:12)
[2020-10-17] MEDS: ATORVASTATIN 40 MG TABLET PO SCH (20:26)
[2020-10-17] MEDS: TRAZODONE 100MG TABLET PO SCH (20:27)
[2020-10-17] MEDS: INSULIN GLARGINE 100 UNITS/ML, PEN SQ-INSULIN SCH (20:38)
[2020-10-17 20:41] VITALS: BP 153/70
[2020-10-18 00:07] VITALS: BP 145/69
[2020-10-18] MEDS: HYDROcodone/APAP 10/325 MG TABLET PO PRN (04:12)
[2020-10-18 04:24] VITALS: BP 170/69
[2020-10-18] MEDS: CEFAZOLIN PMX 1GM/50ML 50 ML IVPB SCH ×3 (04:27→19:55)
[2020-10-18 06:04] LABS: BASOPHILS % (AUTO) 1 % (0-1); EOSINOPHILS % (AUTO) 0 % (1-7); LYMPHOCYTES % (AUTO) 14 % (22-44); MEAN CORPUSCULAR HEMOGLOBIN 28.2 pg (27.0-34.8); MEAN CORPUSCULAR HGB CONC 33.2 g/dL (32.4-35.8); MEAN PLATELET VOLUME 10.1 fL (7.4-10.4); MONOCYTES % (AUTO) 7 % (2-9); NEUTROPHILS % (AUTO) 78 % (42-75); PLATELET COUNT 205 x10^3/uL (130-400); RED BLOOD COUNT 4.16 x10^6/uL (3.82-5.3)
[2020-10-18 06:07] LABS: ANION GAP 5 mmol/L (5-15); CALCIUM 8.7 mg/dL (8.5-10.1); CHLORIDE 103 mmol/L (98-107); CREATININE 0.93 mg/dL (0.55-1.02)
[2020-10-18] MEDS ORDERED: HYDROmorphone 2 MG/ML, 1ML ONE ×2 (06:07→17:33)
[2020-10-18] MEDS: HYDROmorphone 1 MG/ML, 1ML INJ IVPush PRN ×2 (06:11→17:36)
[2020-10-18] MEDS: LEVOTHYROXINE 175 MCG TABLET PO SCH (06:14)
[2020-10-18] MEDS: ENOXAPARIN 40 MG/0.4 ML SQ SCH (06:15)
[2020-10-18 07:48] VITALS: BP 158/67
[2020-10-18] MEDS: INSULIN LISPRO 100 UNITS/ML, PEN 3ML SS HIGH DOSE SQ-INSULIN SCH ×4 (08:36→20:16)
[2020-10-18] MEDS: SODIUM CHLORIDE FLUSH 10ML SYR IVF SCH ×2 (08:52→20:18)
[2020-10-18] MEDS: CYCLOBENZAPRINE 10 MG TABLET PO PRN (08:53)
[2020-10-18] MEDS: CHOLECALCIFEROL 1,000 UNIT TABLET PO SCH (08:53)
[2020-10-18] MEDS: LISINOPRIL 10 MG TABLET PO SCH (08:53)
[2020-10-18] MEDS: OMEPRAZOLE 20 MG CAPSULE.DR PO SCH (08:53)
[2020-10-18] MEDS: GABAPENTIN 400 MG CAPSULE PO SCH ×3 (08:53→20:05)
[2020-10-18] MEDS: CALCIUM/VITAMIN D3 250-125 TABLET PO SCH (08:54)
[2020-10-18] MEDS: LOSARTAN 25MG TABLET PO SCH (08:54)
[2020-10-18] MEDS: CYANOCOBALAMIN 1,000 MCG TABLET PO SCH (08:54)
[2020-10-18] MEDS: SENNA/DOCUSATE TABLET PO PRN (08:54)
[2020-10-18] MEDS: MULTIVITAMIN 1 TABLET PO SCH (08:54)
[2020-10-18] MEDS: SPIRONOLACTONE 25 MG TABLET PO SCH (08:54)
[2020-10-18] MEDS: ASCORBIC ACID 500 MG TABLET PO SCH (08:55)
[2020-10-18] MEDS: ROPINIROLE 1MG TABLET PO SCH ×2 (08:55→20:06)
[2020-10-18] MEDS: OXYcodone IR 5MG TABLET PO PRN ×4 (08:55→20:07)
[2020-10-18] MEDS: (Fluticasone/Umeclidin/Vilanter (Trelegy Ellipta 100-62.5-25) HOMEINH SCH (08:56)
[2020-10-18] MEDS: FLUTICASONE NASAL SPRAY 16GM NAS SCH (10:09)
[2020-10-18 13:20] VITALS: BP 148/77
[2020-10-18] MEDS: NS + 20MEQ KCL 1,000 ML IV SCH (18:00)
[2020-10-18] MEDS ORDERED: CEFAZOLIN PMX 1GM/50ML 50 ML IVPB SCH (18:00)
[2020-10-18 19:34] VITALS: BP 150/80
[2020-10-18] MEDS: TRAZODONE 100MG TABLET PO SCH (20:06)
[2020-10-18] MEDS: ATORVASTATIN 40 MG TABLET PO SCH (20:06)
[2020-10-18] MEDS: INSULIN GLARGINE 100 UNITS/ML, PEN SQ-INSULIN SCH (20:16)
[2020-10-18] MEDS ORDERED: HYDROmorphone 2 MG/ML, 1ML IVPush PRN (23:30)
[2020-10-19] MEDS: CYCLOBENZAPRINE 10 MG TABLET PO PRN (00:28)
[2020-10-19 01:23] VITALS: BP 136/70
[2020-10-19] MEDS: OXYcodone IR 5MG TABLET PO PRN ×5 (02:01→18:04)
[2020-10-19] MEDS: CEFAZOLIN PMX 1GM/50ML 50 ML IVPB SCH ×3 (04:18→19:55)
[2020-10-19] MEDS: ENOXAPARIN 40 MG/0.4 ML SQ SCH (05:32)
[2020-10-19] MEDS: LEVOTHYROXINE 175 MCG TABLET PO SCH (05:32)
[2020-10-19 06:37] LABS: CHLORIDE 98 mmol/L (98-107)
[2020-10-19 06:43] LABS: ANION GAP 9 mmol/L (5-15); CALCIUM 8.7 mg/dL (8.5-10.1); CREATININE 0.96 mg/dL (0.55-1.02)
[2020-10-19 06:45] LABS: BASOPHILS % (AUTO) 1 % (0-1); EOSINOPHILS % (AUTO) 1 % (1-7); LYMPHOCYTES % (AUTO) 21 % (22-44); MEAN CORPUSCULAR HEMOGLOBIN 28.2 pg (27.0-34.8); MONOCYTES % (AUTO) 8 % (2-9); NEUTROPHILS % (AUTO) 70 % (42-75); PLATELET COUNT 180 x10^3/uL (130-400); RED BLOOD COUNT 4.23 x10^6/uL (3.82-5.3); RED CELL DISTRIBUTION WIDTH 13.8 % (9.6-15.2)
[2020-10-19 08:00] VITALS: BP 139/79
[2020-10-19] MEDS: INSULIN LISPRO 100 UNITS/ML, PEN 3ML SS HIGH DOSE SQ-INSULIN SCH ×4 (08:19→20:44)
[2020-10-19] MEDS: ROPINIROLE 1MG TABLET PO SCH ×2 (08:43→20:44)
[2020-10-19] MEDS: FLUTICASONE NASAL SPRAY 16GM NAS SCH (08:43)
[2020-10-19] MEDS: LOSARTAN 25MG TABLET PO SCH (08:43)
[2020-10-19] MEDS: OMEPRAZOLE 20 MG CAPSULE.DR PO SCH (08:43)
[2020-10-19] MEDS: LISINOPRIL 10 MG TABLET PO SCH (08:44)
[2020-10-19] MEDS: MULTIVITAMIN 1 TABLET PO SCH (08:44)
[2020-10-19] MEDS: CHOLECALCIFEROL 1,000 UNIT TABLET PO SCH (08:44)
[2020-10-19] MEDS: SPIRONOLACTONE 25 MG TABLET PO SCH (08:44)
[2020-10-19] MEDS: GABAPENTIN 400 MG CAPSULE PO SCH (08:44)
[2020-10-19] MEDS: CYANOCOBALAMIN 1,000 MCG TABLET PO SCH (08:44)
[2020-10-19] MEDS: ASCORBIC ACID 500 MG TABLET PO SCH (08:44)
[2020-10-19] MEDS: (Fluticasone/Umeclidin/Vilanter (Trelegy Ellipta 100-62.5-25) HOMEINH SCH (08:45)
[2020-10-19] MEDS: SODIUM CHLORIDE FLUSH 10ML SYR IVF SCH ×2 (08:46→19:56)
[2020-10-19] MEDS: CALCIUM/VITAMIN D3 250-125 TABLET PO SCH (08:46)
[2020-10-19] MEDS ORDERED: DIPHENHYDRAMINE 50 MG/ML, 1ML IVPush PRN (09:00)
[2020-10-19] MEDS: POLYETHYLENE GLYCOL 17 GM PACKET PO SCH (09:02)
[2020-10-19] MEDS: GABAPENTIN 300 MG CAPSULE PO SCH ×3 (09:02→20:44)
[2020-10-19 13:48] VITALS: BP 123/70
[2020-10-19] MEDS: NS + 20MEQ KCL 1,000 ML IV SCH (17:45)
[2020-10-19] MEDS: ENOXAPARIN 30 MG/0.3 ML SQ SCH (17:45)
[2020-10-19] MEDS: KETOROLAC 30 MG/1 ML IVPush PRN (17:45)
[2020-10-19 20:37] VITALS: BP 113/56
[2020-10-19] MEDS: ATORVASTATIN 40 MG TABLET PO SCH (20:44)
[2020-10-19] MEDS: TRAZODONE 100MG TABLET PO SCH (20:44)
[2020-10-19] MEDS: INSULIN GLARGINE 100 UNITS/ML, PEN SQ-INSULIN SCH (20:45)
[2020-10-20] MEDS: OXYcodone IR 5MG TABLET PO PRN ×5 (01:01→20:25)
[2020-10-20] MEDS: KETOROLAC 30 MG/1 ML IVPush PRN (01:03)
[2020-10-20 02:12] VITALS: BP 100/55
[2020-10-20] MEDS: CYCLOBENZAPRINE 10 MG TABLET PO PRN ×2 (02:15→14:41)
[2020-10-20] MEDS: CEFAZOLIN PMX 1GM/50ML 50 ML IVPB SCH ×2 (03:43→12:03)
[2020-10-20 05:38] LABS: BASOPHILS % (AUTO) 1 % (0-1); EOSINOPHILS % (AUTO) 4 % (1-7); LYMPHOCYTES % (AUTO) 26 % (22-44); MEAN CORPUSCULAR HEMOGLOBIN 28.5 pg (27.0-34.8); MEAN CORPUSCULAR HGB CONC 33.5 g/dL (32.4-35.8); MONOCYTES % (AUTO) 8 % (2-9); NEUTROPHILS % (AUTO) 61 % (42-75); PLATELET COUNT 194 x10^3/uL (130-400); RED BLOOD COUNT 3.93 x10^6/uL (3.82-5.3); RED CELL DISTRIBUTION WIDTH 13.6 % (9.6-15.2)
[2020-10-20 05:48] LABS: ANION GAP 5 mmol/L (5-15); CALCIUM 8.2 mg/dL (8.5-10.1); CHLORIDE 101 mmol/L (98-107); CREATININE 1.16 mg/dL (0.55-1.02)
[2020-10-20] MEDS: LEVOTHYROXINE 175 MCG TABLET PO SCH (06:30)
[2020-10-20] MEDS: ENOXAPARIN 30 MG/0.3 ML SQ SCH ×2 (06:30→18:22)
[2020-10-20] MEDS: INSULIN LISPRO 100 UNITS/ML, PEN 3ML SS HIGH DOSE SQ-INSULIN SCH ×4 (06:34→21:20)
[2020-10-20 07:39] VITALS: BP 97/62
[2020-10-20] MEDS ORDERED: LACTATED RINGERS 500 ML IVBOLUS ONE (08:00)
[2020-10-20] MEDS ORDERED: MAGNESIUM CITRATE 300ML ORAL SOL PO PRN (08:00)
[2020-10-20 09:28] VITALS: BP 118/72
[2020-10-20] MEDS: POLYETHYLENE GLYCOL 17 GM PACKET PO SCH (09:29)
[2020-10-20] MEDS: LISINOPRIL 10 MG TABLET PO SCH (09:30)
[2020-10-20] MEDS: CYANOCOBALAMIN 1,000 MCG TABLET PO SCH (09:30)
[2020-10-20] MEDS: GABAPENTIN 300 MG CAPSULE PO SCH ×3 (09:30→21:21)
[2020-10-20] MEDS: CEPHALEXIN 500 MG CAPSULE PO SCH ×3 (09:30→21:21)
[2020-10-20] MEDS: MULTIVITAMIN 1 TABLET PO SCH (09:30)
[2020-10-20] MEDS: ROPINIROLE 1MG TABLET PO SCH ×2 (09:31→21:21)
[2020-10-20] MEDS: ASCORBIC ACID 500 MG TABLET PO SCH (09:31)
[2020-10-20] MEDS: (Fluticasone/Umeclidin/Vilanter (Trelegy Ellipta 100-62.5-25) HOMEINH SCH (09:31)
[2020-10-20] MEDS: OMEPRAZOLE 20 MG CAPSULE.DR PO SCH (09:31)
[2020-10-20] MEDS: LOSARTAN 25MG TABLET PO SCH (09:31)
[2020-10-20] MEDS: SPIRONOLACTONE 25 MG TABLET PO SCH (09:31)
[2020-10-20] MEDS: CHOLECALCIFEROL 1,000 UNIT TABLET PO SCH (09:31)
[2020-10-20] MEDS: SODIUM CHLORIDE FLUSH 10ML SYR IVF SCH ×2 (09:33→21:21)
[2020-10-20] MEDS: FLUTICASONE NASAL SPRAY 16GM NAS SCH (09:33)
[2020-10-20] MEDS: CALCIUM/VITAMIN D3 250-125 TABLET PO SCH (09:33)
[2020-10-20] MEDS: NS + 20MEQ KCL 1,000 ML IV SCH (13:00)
[2020-10-20 13:38] VITALS: BP 117/58
[2020-10-20 19:22] VITALS: BP 143/66
[2020-10-20] MEDS: INSULIN GLARGINE 100 UNITS/ML, PEN SQ-INSULIN SCH (21:20)
[2020-10-20] MEDS: ATORVASTATIN 40 MG TABLET PO SCH (21:21)
[2020-10-20] MEDS: TRAZODONE 100MG TABLET PO SCH (21:21)
[2020-10-20] MEDS: SENNA/DOCUSATE TABLET PO PRN (21:21)
[2020-10-21 00:21] VITALS: BP 120/61
[2020-10-21] MEDS: OXYcodone IR 5MG TABLET PO PRN ×3 (03:15→14:10)
[2020-10-21] MEDS: CYCLOBENZAPRINE 10 MG TABLET PO PRN (03:15)
[2020-10-21] MEDS: LEVOTHYROXINE 175 MCG TABLET PO SCH (05:46)
[2020-10-21] MEDS: ENOXAPARIN 30 MG/0.3 ML SQ SCH (05:46)
[2020-10-21 05:57] LABS: BASOPHILS % (AUTO) 1 % (0-1); EOSINOPHILS % (AUTO) 3 % (1-7); LYMPHOCYTES % (AUTO) 26 % (22-44); MEAN CORPUSCULAR HEMOGLOBIN 28.5 pg (27.0-34.8); MEAN CORPUSCULAR HGB CONC 33.7 g/dL (32.4-35.8); MONOCYTES % (AUTO) 9 % (2-9); NEUTROPHILS % (AUTO) 60 % (42-75); PLATELET COUNT 244 x10^3/uL (130-400); RED BLOOD COUNT 3.88 x10^6/uL (3.82-5.3); RED CELL DISTRIBUTION WIDTH 13.7 % (9.6-15.2)
[2020-10-21] MEDS: INSULIN LISPRO 100 UNITS/ML, PEN 3ML SS HIGH DOSE SQ-INSULIN SCH ×2 (07:00→11:34)
[2020-10-21 07:53] VITALS: BP 129/67
[2020-10-21] MEDS: LOSARTAN 25MG TABLET PO SCH (08:22)
[2020-10-21] MEDS: CYANOCOBALAMIN 1,000 MCG TABLET PO SCH (08:22)
[2020-10-21] MEDS: GABAPENTIN 300 MG CAPSULE PO SCH ×2 (08:23→15:08)
[2020-10-21] MEDS: CHOLECALCIFEROL 1,000 UNIT TABLET PO SCH (08:23)
[2020-10-21] MEDS: LISINOPRIL 10 MG TABLET PO SCH (08:23)
[2020-10-21] MEDS: ROPINIROLE 1MG TABLET PO SCH (08:23)
[2020-10-21] MEDS: CEPHALEXIN 500 MG CAPSULE PO SCH ×2 (08:23→15:08)
[2020-10-21] MEDS: ASCORBIC ACID 500 MG TABLET PO SCH (08:24)
[2020-10-21] MEDS: OMEPRAZOLE 20 MG CAPSULE.DR PO SCH (08:24)
[2020-10-21] MEDS: CALCIUM/VITAMIN D3 250-125 TABLET PO SCH (08:24)
[2020-10-21] MEDS: SPIRONOLACTONE 25 MG TABLET PO SCH (08:24)
[2020-10-21] MEDS: MULTIVITAMIN 1 TABLET PO SCH (08:24)
[2020-10-21] MEDS: POLYETHYLENE GLYCOL 17 GM PACKET PO SCH (08:26)
[2020-10-21] MEDS: SODIUM CHLORIDE FLUSH 10ML SYR IVF SCH (09:00)
[2020-10-21] MEDS: (Fluticasone/Umeclidin/Vilanter (Trelegy Ellipta 100-62.5-25) HOMEINH SCH (09:00)
[2020-10-21] MEDS: NS + 20MEQ KCL 1,000 ML IV SCH (09:30)
[2020-10-21] MEDS: FLUTICASONE NASAL SPRAY 16GM NAS SCH (11:34)
[2020-10-21] MEDS ORDERED: OXYC5TAB98 PO (12:26)
[2020-10-21] MEDS ORDERED: GABA300C PO (12:26)
[2020-10-21] MEDS ORDERED: CYCL10TA2 PO (12:26)
[2020-10-21] MEDS ORDERED: CEPH-376 PO (12:26)
[2020-10-21 13:36] VITALS: BP 137/73
[2020-10-21 13:55] VITALS: BP 117/67
== END 2020-10-21 16:06 | disposition home health service (06) | DRG 454 ==
LOC: ORIP 05:36 → 4NE 16:48
PROVIDERS: ADMIT Neurological Surgery; ATTEND Neurological Surgery
PROC: 01NB0ZZ Release Lumbar Nerve, Open Approach (ICD-10-PCS; 2020-10-16)
PROC: 4A11X4G Monitoring of Peripheral Nervous Electrical Activity, Intraoperative, External Approach (ICD-10-PCS; 2020-10-16)
PROC: 4A1134G Monitoring of Peripheral Nervous Electrical Activity, Intraoperative, Percutaneous Approach (ICD-10-PCS; 2020-10-16)
PROC: 5A09357 Assistance with Respiratory Ventilation, Less than 24 Consecutive Hours, Continuous Positive Airway Pressure (ICD-10-PCS; 2020-10-16)
PROC: 0SG00A0 Fusion of Lumbar Vertebral Joint with Interbody Fusion Device, Anterior Approach, Anterior Column, Open Approach (ICD-10-PCS; principal; 2020-10-16 07:00)
PROC: 0SG00K1 Fusion of Lumbar Vertebral Joint with Nonautologous Tissue Substitute, Posterior Approach, Posterior Column, Open Approach (ICD-10-PCS; 2020-10-17)
PROC: 01NB0ZZ Release Lumbar Nerve, Open Approach (ICD-10-PCS; 2020-10-17)
PROC: 00PU0YZ Removal of Other Device from Spinal Canal, Open Approach (ICD-10-PCS; 2020-10-17)
PROC: 8E0W0CZ Robotic Assisted Procedure of Trunk Region, Open Approach (ICD-10-PCS; 2020-10-17)
DX: M48.062 Spinal stenosis, lumbar region with neurogenic claudication (principal); E87.1 Hypo-osmolality and hyponatremia; M47.26 Other spondylosis with radiculopathy, lumbar region; R26.9 Unspecified abnormalities of gait and mobility; I95.9 Hypotension, unspecified; E83.51 Hypocalcemia; E87.6 Hypokalemia; J44.9 Chronic obstructive pulmonary disease, unspecified; M71.38 Other bursal cyst, other site
CPT/HCPCS: 36415; 72100; 72131; 80048; 82962; 85025; 95938; 95941; C1713; C1729; G0378; J0171; J0690; J1100; J1170; J1650; J1815; J1885; J2175; J2405; J2704; J2710; J3010; J3370; J3480; J7120; C1760; C1762; C1769; C1776; J0330; J2060; J2370; J2800